=== PATIENT | female | born 1955 | race Caucasian/White ===

== ENCOUNTER → 2018-04-16 12:00 | Outpatient (CLI) | payer OTHER, SELFPAY | PROVIDERS: Family Provider Family Medicine; PCP Family Medicine; Visit Provider Family Medicine | DX: Z13.9 Encounter for screening, unspecified (principal) ==

== ENCOUNTER → 2018-04-18 09:10 | Outpatient (CLI) | payer OTHER, SELFPAY ==
[2018-04-18 09:46] LABS: Add Manual Diff / Slide Review NO; Hematocrit 41.8 % (36-46); Hemoglobin 13.9 g/dL (12.0-16.0); Lymphocytes Percent Auto 35.5 % (25-40); Mean Corpuscular HGB Conc 33.2 % (30-36); Mean Corpuscular Hemoglobin 29.6 PG (26-34); Mean Corpuscular Volume 89.2 fL (80-100); Monocytes Percent Auto 7.7 % (3-14); Neutrophils Absolute Auto 2500 /uL (3000-5900); Neutrophils Percent Auto 47.8 % (50-75); Platelet Count 331 X10^3/uL (150-400); Red Blood Cell Count 4.69 X10^6/uL (4.0-5.2); White Blood Cell Count 5.2 X10^3/uL (4.5-11.0)
[2018-04-18 10:38] LABS: Alanine Aminotransferase 46 IU/L (9-52); Albumin 4.5 g/dL (3.5-5.0); Albumin Globulin Ratio 1.5 (1.0-2.8); Alkaline Phosphatase 71 U/L (38-126); Amylase 61 U/L (30-110); Aspartate Aminotransferase 35 IU/L (14-36); BUN Creatinine Ratio 12.5 (6-22); Bilirubin Total 0.4 mg/dL (0.2-1.3); Blood Urea Nitrogen 10 mg/dL (7-17); Calcium 9.7 mg/dL (8.4-10.2); Carbon Dioxide 29 mmol/L (22-32); Chloride 102 mmol/L (98-107); Cholesterol 241 mg/dL (140-199); Estimated Glomerular Filt Rate > 60.0 mL/min (>60); Globulin 3.1 g/dL (1.7-4.1); Glucose 89 mg/dL (80-110); HDL Cholesterol 61 mg/dL (40-60); HEMOLYSIS < 15 (0-50); LDL Cholesterol Calculated 158 mg/dL (<100); Lipase 89 U/L (23-300); Potassium 4.7 mmol/L (3.4-5.1); Sodium 140 mmol/L (137-145); Total Protein 7.6 g/dL (6.3-8.2); Triglycerides 112 mg/dL (35-150)
[2018-04-18 11:07] LABS: Thyroid Stimulating Hormone 1.42 uIU/mL (0.47-4.68)
[2018-04-23 13:17] LABS: (tTG) Ab, IgA < 1 U/mL
== END ==
PROVIDERS: PCP Family Medicine; Visit Provider Family Medicine
DX: R19.5 Other fecal abnormalities (principal)
CPT/HCPCS: 36415; 80053; 80061; 82150; 83516; 83690; 84443; 85025; 86255

== ENCOUNTER → 2018-05-16 12:12 | Outpatient (CLI) | payer OTHER, SELFPAY | PROVIDERS: PCP Family Medicine; Visit Provider Family Medicine | DX: R19.5 Other fecal abnormalities (principal) | CPT/HCPCS: 87177 ==

== ENCOUNTER 2018-12-24 12:15 | Emergency (ER) | payer OTHER, SELFPAY ==
[2018-12-24 12:39] VITALS: PULSE 72; RESP 18; TEMP 36.6; O2SAT 98
--- NOTE | 2018-12-24 12:46 | DI.RAD.S_ITS ---
PROCEDURE: XR ELBOW RT MIN 3V INDICATIONS: Right elbow injury TECHNIQUE: 3 views of the elbow were acquired. COMPARISON: None. FINDINGS: Bones: There is a nondisplaced fracture involving the radial head. No additional fractures are evident. No suspicious osseous lesions are present. Soft tissues: There is a large elbow joint effusion. No suspicious soft tissue calcifications. IMPRESSION: Nondisplaced radial head fracture. Dictated by: Nando Gamboa M.D. on 12/24/2018 at 12:49 Approved by: Nando Gamboa M.D. on 12/24/2018 at 12:59
--- NOTE | 2018-12-24 14:38 | DI.RAD.S_ITS ---
PROCEDURE: XR FOREARM RT 2V INDICATIONS: fall with pain TECHNIQUE: 2 views of the forearm were acquired. COMPARISON: [facility], CR, XR ELBOW RT MIN 3V, 12/24/2018, 12:57. FINDINGS: Bones: Radial head fracture is identified. No significant displacement is evident. No additional fractures are present involving the forearm. No suspicious osseous lesions or dislocations are evident. Soft tissues: No suspicious soft tissue calcifications or masses. There is an elbow effusion. IMPRESSION: Essentially nondisplaced radial head fracture. No additional fractures. Dictated by: Nando Gamboa M.D. on 12/24/2018 at 14:22 Approved by: Nando Gamboa M.D. on 12/24/2018 at 14:23
--- NOTE | 2018-12-24 15:03 | ED.UPPEXIN ---
HPI - Extremity Injury (Upper) <TARIK MccrayBC - Last Filed: 12/24/18 16:54> General Chief Complaint: Extremity Injury, Upper Stated Complaint: FALL/RT ARM PAIN Time Seen by Provider: 12/24/18 14:36 Source: patient Mode of arrival: ambulatory Limitations: no limitations History of Present Illness HPI narrative: Patient is a 63-year-old female nonsmoker with history of TBI who presents for a chief complaint of right arm pain. She states that she was working with horses yesterday and fell, landing on her right arm. She states she cannot flex or extend her right elbow fully. She denies any neck or back pain. She denies hitting her head or loss of consciousness. She does not take any blood thinners. She states that her elbow hurts, nonradiating. She took 1 200 mg ibuprofen this morning. She states she is unable to pronate or supinate her forearm. She has not applied ice. She states that she does not think it is broken as she broke her other arm and does not feel that. Related Data Home Medications Medication Instructions Recorded Confirmed CA PANTOTHENATE/FOLIC ACID/VIT 1 tab PO Q DAY #0 03/24/11 12/24/18 (MULTIVITAMIN) Calcium Carbonate/Vitamin D 1 cap PO Q DAY #0 03/24/11 12/24/18 (#CALCIUM) ibuprofen 200 mg tablet 200 mg PO QID PRN 12/24/18 12/24/18 Previous Rx's Medication Instructions Recorded hydrocodone-acetaminophen [[place]] 1 tab PO Q4-6H PRN #7 tab 12/24/18 Allergies Allergy/AdvReac Type Severity Reaction Status Date / Time Penicillins [PENICILLINS] Allergy Severe RASH AND Verified 04/16/18 11:29 THROAT SWELLING lactose Allergy Intermediate Gi upset Verified 12/24/18 11:45 ceftizoxime [CEFTIZOXIME] AdvReac Intermediate GI UPSET Verified 04/16/18 11:29 AND ACHY JOINTS ciprofloxacin [From CIPRO] AdvReac Mild ACHY JOINTS Verified 04/16/18 11:29 Review of Systems <RADHA Mccray - Last Filed: 12/24/18 16:54> Review of Systems GENERAL: Denies chills, fatigue, malaise, fever, sweats. HEENT: Denies sinus pain, ear pain, sore throat, difficulty swallowing, dizziness. RESPIRATORY: Denies dyspnea, cough, wheezing, hemoptysis, sputum. CARDIOVASCULAR: Denies chest pain, palpitations, orthopnea, edema, GASTROINTESTINAL: Denies nausea, vomiting, abdominal pain, diarrhea, constipation, melena. : Denies dysuria, frequency, incontinence, hematuria, urinary retention. MUSCULOSKELETAL: See HPI SKIN: Denies rash, skin lesions, or other NEUROLOGIC: Denies weakness, headache, numbness, change in speech, confusion, seizures, incoordination. PSYCHIATRIC: No concerning psychosocial issues. 12 point review of systems is negative except for those stated above PFSH <RADHA Mccray - Last Filed: 12/24/18 16:54> Medical History Concussion syndrome (Chronic ~2015) Foot pain (Chronic) Hearing loss (Chronic) Hyperlipidemia (Chronic) Rosacea (Chronic) Seasonal allergies (Chronic) TBI (traumatic brain injury) (Chronic ~2015) Surgical History Anesthesia (Resolved) History of elbow surgery (Resolved ~1964) Social History marital status: Smoking Status: Never smoker alcohol intake: never substance use type: does not use Social History marital status: Smoking Status: Never smoker alcohol intake: never substance use type: does not use Exam <RADHA Mccray - Last Filed: 12/24/18 16:54> Narrative Exam Narrative: GENERAL: This is a well-nourished, well-developed patient, no acute distress HEAD: Atraumatic. Normocephalic. No temporal or scalp tenderness. EYES: Pupils equal round and reactive. Extraocular motions intact. No scleral icterus. No injection or drainage. ENT: Nose without bleeding, purulent drainage or septal hematoma. Throat without erythema, tonsillar hypertrophy or exudate. Uvula midline. Airway patent. NECK: Trachea midline. No JVD or lymphadenopathy. Supple, nontender, no meningeal signs. CARDIOVASCULAR: Regular rate and rhythm without murmurs, gallops, or rubs. RESPIRATORY: Clear to auscultation. Breath sounds equal bilaterally. No wheezes, rales, or rhonchi. No cough. No increased respiratory effort GASTROINTESTINAL: Abdomen soft, non-tender, nondistended. No hepato-splenomegaly, or palpable masses. No guarding. EXTREMITIES: Pain to palpation noted right elbow, and able to fully flex right elbow only able to flex to about 90?. Positive radial pulse right hand. Capillary refill less than 2 seconds all fingers right hand. No pain to palpation right shoulder. Able to flex and extend right wrist. BACK: Nontender without deformity or crepitance. No flank tenderness. Skin: No erythema ecchymosis laceration or abrasion noted right arm. Neuro: Alert and oriented x3. Good polyethylene combiner strength bilaterally. No slurred speech. No obvious cranial nerve deficit. Initial Vital Signs Initial Vital Signs: Vital Signs Temperature 97.9 F 12/24/18 12:39 Pulse Rate 72 12/24/18 12:39 Respiratory Rate 18 12/24/18 12:39 Pulse Oximetry 98 12/24/18 12:39 <Tara Plata MD - Last Filed: 12/24/18 19:54> Initial Vital Signs Initial Vital Signs: Vital Signs Temperature 97.9 F 12/24/18 12:39 Pulse Rate 72 12/24/18 12:39 Respiratory Rate 18 12/24/18 12:39 Pulse Oximetry 98 12/24/18 12:39 Procedures <RADHA Mccray - Last Filed: 12/24/18 16:54> Orthopedic Splinting/Casting Injury #1: Side: right Upper Extremity Injury Location: elbow Upper Extremity Immobilizer: sling/shoulder immobilizer, posterior splint and Demario wrap Post splinting neuro exam: intact Post splinting vascular exam: intact Placed by: Nursing Scores <RADHA Mccray - Last Filed: 12/24/18 16:54> GCS Sandrine coma scale eye opening: Spontaneous Sandrine coma scale verbal response: Orientated Sandrine coma scale motor response: Obey commands [place] coma scale total score: 15 Course <RADHA Mccray - Last Filed: 12/24/18 16:54> Orders Ordered: ED Orders 12/24/18 12:46 XR elbow RT min 3V Stat 12/24/18 14:38 XR forearm RT 2V Stat Discontinued Medications Ibuprofen (Advil) 800 mg PO NOW ONE Stop: 12/24/18 15:37 Last Admin: 12/24/18 15:44 Dose: 400 mg Vital Signs - 8 hr 12/24/18 12:39 12/24/18 16:46 Temperature 97.9 F 97.7 F Pulse Rate 72 81 Respiratory Rate 18 16 Blood Pressure 149/66 H Pulse Oximetry 98 99 <Tara Plata MD - Last Filed: 12/24/18 19:54> Orders Ordered: ED Orders 12/24/18 12:46 XR elbow RT min 3V Stat 12/24/18 14:38 XR forearm RT 2V Stat Discontinued Medications Ibuprofen (Advil) 800 mg PO NOW ONE Stop: 12/24/18 15:37 Last Admin: 12/24/18 15:44 Dose: 400 mg Vital Signs - 8 hr 12/24/18 12:39 12/24/18 16:46 Temperature 97.9 F 97.7 F Pulse Rate 72 81 Respiratory Rate 18 16 Blood Pressure 149/66 H Pulse Oximetry 98 99 MDM - Extremity Injury (Upper) <RADHA Mccray - Last Filed: 12/24/18 16:54> Imaging Data Forearm x-ray: Radiologist's impression: [address] [address] XRay Report Signed Patient: Leeanne Reyes [facility]#: [id number] : 8Acct:[id number] Age/Sex: 63 / FDate of Service: 12/24/18 Loc: ED Accession Number: [id number] Procedure: XR forearm RT 2V Ordering Provider: Alma Caballero PROCEDURE: XR FOREARM RT 2V INDICATIONS: fall with pain TECHNIQUE: 2 views of the forearm were acquired. COMPARISON: [facility], CR, XR ELBOW RT MIN 3V, 12/24/2018, 12:57. FINDINGS: Bones: Radial head fracture is identified. No significant displacement is evident. No additional fractures are present involving the forearm. No suspicious osseous lesions or dislocations are evident. Soft tissues: No suspicious soft tissue calcifications or masses. There is an elbow effusion. IMPRESSION: Essentially nondisplaced radial head fracture. No additional fractures. Dictated by: Nando Gamboa M.D. on 12/24/2018 at 14:22 Approved by: Nando Gamboa M.D. on 12/24/2018 at 14:23 Elbow x-ray: Radiologist's impression: [address] [address] XRay Report Signed Patient: Leeanne Reyes [facility]#: [id number] : 8Acct:[id number] Age/Sex: 63 / FDate of Service: 12/24/18 Loc: ED Accession Number: [id number] Procedure: XR elbow RT min 3V Ordering Provider: Tara Plata MD PROCEDURE: XR ELBOW RT MIN 3V INDICATIONS: Right elbow injury TECHNIQUE: 3 views of the elbow were acquired. COMPARISON: None. FINDINGS: Bones: There is a nondisplaced fracture involving the radial head. No additional fractures are evident. No suspicious osseous lesions are present. Soft tissues: There is a large elbow joint effusion. No suspicious soft tissue calcifications. IMPRESSION: Nondisplaced radial head fracture. Dictated by: Nando Gamboa M.D. on 12/24/2018 at 12:49 Approved by: Nando Gamboa M.D. on 12/24/2018 at 12:59 MDM Narrative Medical decision making narrative: The patient is a 63-year-old female who presents after ground level fall with right arm pain. She initially declined her right forearm x-ray, which ended up delaying her treatment. She was found have a radial head fracture. She has a large elbow effusion and is unable to flex her right elbow fully, but she was placed in a posterior splint, full arm with the elbow at 90?.. I gave her small prescription of [place]. She is neurovascularly intact. I discussed at length follow up with her PCP as well as [facility]. She was given contact information for both. I discussed at length coming back to the ER for any acute concerns such as decreased circulation to the fingers. No questions or concerns upon discharge. Also encouraged rest ice compression elevation. Patient states understanding of return precautions as well as follow-up care. Discharge Plan Departure Patient Disposition: Home Clinical Impression: Closed fracture of radial head Qualifiers: Encounter type: initial encounter Fracture alignment: nondisplaced Laterality: right Qualified Code(s): S52.124A - Nondisplaced fracture of head of right radius, initial encounter for closed fracture Discharge Date/Time: 12/24/18 16:45 Interventions: ED Discharge Assessment Last Done: 12/24/18 16:46 Instructions: How to Use a Sling, DI for Forearm Fracture, How to Take Care of Your Splint Activity Restrictions/Additional Instructions: Unfortunately broke part of the radius today. Please follow up with your PCP as well as [facility]. I have given you contact information for both. Please be aware of that [place] can be constipating And sedating. Please come back to the emergency department for any acute concerns such as decreased movement or circulation toher fingers Prescriptions: New hydrocodone-acetaminophen [[place]] 5-325 mg tablet 1 tab PO Q4-6H PRN (Reason: pain) Qty: 7 RF: 0 No Action CA PANTOTHENATE/FOLIC ACID/VIT (MULTIVITAMIN) 1 tab PO Q DAY Qty: 0 RF: 0 Calcium Carbonate/Vitamin D (#CALCIUM) 1 cap PO Q DAY Qty: 0 RF: 0 ibuprofen [Advil] 200 mg tablet 200 mg PO QID PRNRF: 0 Referrals: [facility] [Provider Group] Dawson Pollock MD [Primary Care Provider] -
[2018-12-24] MEDS: IBUPROFEN 400 MG TABLET 800 MG PO (15:44)
[2018-12-24 16:46] VITALS: BP 149/66; PULSE 81; RESP 16; TEMP 36.5; O2SAT 99
== END 2018-12-24 16:45 | disposition home or self-care (01) ==
PROVIDERS: Emergency Provider Nurse Practitioner Family; PCP Family Medicine
DX: S52.124A Nondisplaced fracture of head of right radius, initial encounter for closed fracture (principal); W19.XXXA Unspecified fall, initial encounter
CPT/HCPCS: 73080; 73090; 99282; 99283

== ENCOUNTER 2019-06-18 12:00 | Outpatient (RCR) | payer OTHER, SELFPAY ==
--- NOTE | 2019-02-10 11:58 | PT.OIE ---
Current Diagnoses Pain in right elbow (02/06/19) Nondisplaced fracture of head of right radius, initial encounter for closed fracture (02/06/19) Past Medical History (Last Reviewed 12/24/18 @ 16:49 by RADHA Mccray) Concussion syndrome (Chronic ~2015) Foot pain (Chronic) Hearing loss (Chronic) Hyperlipidemia (Chronic) Rosacea (Chronic) Seasonal allergies (Chronic) TBI (traumatic brain injury) (Chronic ~2015) Past Surgical History (Last Reviewed 12/24/18 @ 16:49 by RADHA Mccray) Anesthesia (Resolved) History of elbow surgery (Resolved ~1964) Visit Care Team Role Provider Type Dawson Pollock MD Primary Care Provider Physician Specialty: Family Practice Address: [address] [place] [address], [id number] Email: [email or web address] Other Providers Specialty: Address: Phone: Fax: Email: Arsen Pacheco MD Attending Provider Non-Staff Specialty: Orthopedic Surgery Address: [address] [place] [address], [address], [place], [address] Email: Physical Therapy Initial Evaluation PT-OP-A Visit Information Start: 02/10/19 09:22 Freq: Status: Active Protocol: Document 02/06/19 11:25 [facility] (Rec: 02/10/19 09:51 [facility] [email or web address]) Out-Patient Physical Therapy Visit Information Visit Information Visit Type Initial Evaluation Visit Note 63 year old female s/p nondisplaced fracture of the right radial head. Date of injury is 12/23/18 and Leeanne sustained a fall which resulted in the fracture. She has been in a sling since this time and is very limited with her ROM and functional use of the right UE Visit Start Time 11:25 Visit Stop Time 12:10 Total Visit Minutes 45 Visit Number 1 Evaluation Information Evaluation Date 02/06/19 PT-OP-B Current Condition Start: 02/10/19 09:22 Freq: Status: Active Protocol: Document 02/06/19 11:25 [facility] (Rec: 02/10/19 09:51 [facility] [email or web address]) Current Condition History of Current Condition Onset Date 12/23/18 Current Complaints right sided elbow stiffness and lack of ROM or functional use History of Current Condition Leeanne is a 63 year old female who fell on 12/23/18. X-ray report taken on 12/24/18 revealed a nondisplaced fracture of the right radial head. There was also a large amount of elbow effusion present. Leeanne was placed in a sling and she wore this until she saw Dr. Pacheco on 02/03 who had her discontinue use of the sling and only wear it when she is in crowds. She was prescribed PT at this time. Her current complaints include severly limited elbow ROM, swelling, difficulty moving her fingers, inablity to hold items in her right hand, pain with any twisting and unable to perform. Treatment Goals Patient/Caregiver Goals Leeanne would like a full recovery of her elbow with full ROM and strength Prior Functional Status Baseline Function- ADL's Modified Independent Baseline Function- Mobility Modified Independent Current Functional Impairments (Reported) Functional Limitations- ADL's limited with anything that requires use of her right hand or arm Functional Limitations- Recreation/ unable to lift hay vikas and Hobbies has to modify for activities such as sweeping the barn, hasn't been able to go on hikes due to pain and limited elbow mobility PT-OP-C Subjective Start: 02/10/19 09:22 Freq: Status: Active Protocol: Document 02/06/19 11:25 [facility] (Rec: 02/10/19 11:58 [facility] [email or web address]) Patient Questionnaires Quick Dash- Upper Extremity Quick Dash UE Impairment 40 to 59% Impaired (Score 40- 59) OP-PT Pain Assessment Location Right Elbow Pain Location Details pain right elbow, wrist, shoulder Intensity 5 Scale Used Numeric (1 - 10) PT-OP-F Manual Assessment Start: 02/10/19 09:22 Freq: Status: Active Protocol: Document 02/06/19 11:25 [facility] (Rec: 02/10/19 09:51 [facility] [email or web address]) Manual Assessments Soft Tissue Assessment Soft Tissue Mobility Assessment guarding and spasm of the right biceps, deltiod, upper trapezius, common extensor tendon, supinator muscle Joint Mobility Assessment Joint Mobility Assessment very limited R elbow and wrist ROM, guarded right shoulder ROM, Other Manual Assessments Other Manual Assessments swelling noted over the right wrist and fingers PT-OP-J Posture/Palpation/Skin Start: 02/10/19 09:22 Freq: Status: Active Protocol: Document 02/06/19 11:25 [facility] (Rec: 02/10/19 09:51 [facility] [email or web address]) Palpation Assessment Location Three Palpation Location right supinator muscle Palpation Findings Soft Tissue Tightness,Spasm, Muscle Guarding,Tenderness Two Palpation Location common extensor tendon R Palpation Findings Soft Tissue Tightness,Spasm, Muscle Guarding,Tenderness One Palpation Location right radial head Palpation Findings Tenderness PT-OP-M Strength Start: 02/10/19 09:22 Freq: Status: Active Protocol: Document 02/06/19 11:25 [facility] (Rec: 02/10/19 09:51 [facility] [email or web address]) Shoulder Strength Shoulder Manual Muscle Testing Right Flexion 2+ Poor+ Abduction (C5) 2+ Poor+ External Rotation 2+ Poor+ Elbow/Forearm Strength Elbow and Forearm Manual Muscle Testing Right Flexion (C6) 2 Poor Extension (C7) 2 Poor Pronation 2 Poor Supination 2 Poor Wrist Strength Wrist Manual Muscle Testing Right Flexion (C7) 2- Poor- Extension (C6) 2- Poor- Ulnar Deviation 2- Poor- Radial Deviation 2- Poor- PT-OP-Q Treatments Start: 02/10/19 09:22 Freq: Status: Active Protocol: Document 02/06/19 11:25 [facility] (Rec: 02/10/19 09:51 [facility] [email or web address]) Therapeutic Exercises Sitting Exercises 1 Sitting Exercise Name seated wrist flexion, ext, supination, pronation Side right Reps/Minutes 2 x 10 reps Standing Exercises 2 Standing Exercise Name standing bicep curls and tricep extension Side right 1 Standing Exercise Name shoulder pendullum Side right Reps/Minutes 2 min Manual Therapy Treatment Soft Tissue Mobilization 1 Body Location right biceps, deltoid, wrist extensors Mobilization Type Myofascial Release,Strumming Intensity/Depth Superficial Body Position Supine PT-OP-T Assessment and Plan Start: 02/10/19 09:22 Freq: Status: Active Protocol: Document 02/06/19 11:25 [facility] (Rec: 02/10/19 09:51 [facility] [email or web address]) Physical Therapy Assessment Rehab Potential Rehabilitation Potential Good Evaluation Complexity Number of Personal Factors/Comorbidities 0 Number of Body Systems Impaired 1-2 Clinical Presentation at Evaluation Stable Impairments Impairments Activity Tolerance,Edema, Functional Activities,Pain,ROM ,Soft Tissue Mobility,Strength Goals Five Impairment Poor strength of the R elbow, wrist, and shoulder due to pain/immobility Assistant Program Manager Goal (LTG) Improve strength of the right UE to WFL LTG Duration 8 weeks Four Impairment R sided elbow pain rated 5/10 and decreased functional use of the R elbow Residential Goal (LTG) Leeanne has a reduction in pain to 1-2/10 and is able to return to normal functional activities such a twisting and gripping. LTG Duration 8 weeks + Three Impairment Painful and stiff right shoulder Residential Goal (LTG) Decrease muscle guarding and pain and improve full pain free R shoulder ROM LTG Duration 8 weeks Two Impairment Painful and limited ROM of the R wrist Short Term Goal (STG) Improve wrist ROM from 20 degrees extension and 50 degrees flexion to WNL of 70 degress wrist extension and 75 degrees wrist flexion STG Duration 4-6 weeks One Impairment decreased R elbow ROM Flexion 95, ext 38, pronation 30, supination 15 Short Term Goal (STG) Leeanne shows a increase in elbow ROM by 10 degrees for elbow flexion, extension, pronation and supination STG Duration 4-6 weeks Residential Goal (LTG) Leeanne is able to gain full ROM back of her right elbow LTG Duration 8 weeks + Assessment Summary Assessment Leeanne presents to PT today with signs and symptoms of right elbow, wrist, and shoulder stiffness folllowing the fracture to her right radial head 12/23/18. She has very limited ROM and has been wearing a sling up until 02/03 when she saw her orthopedic doctor. 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 Her right shoulder is also involved with guarding and spasm of the biceps and deltoid as well as the upper trapezius. She has very little functional use of her R UE at this time and is walking with it bent as if it was in a sling. Treatment will focus on improving pain free ROM of the right elbow, wrist, and shoulder, decreasing swelling, improving strength, and decreasing pain . Physical Therapy Plan Frequency and Duration Frequency of Treatment 2x/Week Duration of Treatment 8 Plan of Care Start Date 02/06/19 Plan of Care End Date 03/20/19 Therapeutic Interventions Therapeutic Interventions Manual Therapy,Patient/ Caregiver Education,Self-Care/ Home Management,Soft Tissue Mobilization,Therapeutic Exercises Modalities Cold Pack/Ice Massage,Electric Stimulation Next Visit Focus/Plan Next Note Type Treatment Note Next Visit Plan review wrist and elbow ROM exercises, manual work to decrease muscle guarding and pain, progress ROM exercises as tolerated. Try gentle weightshifts in modified standing position.
--- NOTE | 2019-02-10 12:00 | PT.OPPOC ---
Current Diagnoses Pain in right elbow (02/06/19) Nondisplaced fracture of head of right radius, initial encounter for closed fracture (02/06/19) Visit Care Team Role Provider Type Dawson Pollock MD Primary Care Provider Physician Specialty: Family Practice Address: [address] [place] [address], [id number] Email: [email or web address] Other Providers Specialty: Address: Phone: Fax: Email: Arsen Pacheco MD Attending Provider Non-Staff Specialty: Orthopedic Surgery Address: [address] [place] [address], [address], [place], [address] Email: Plan Of Care PT-OP-T Assessment and Plan Start: 02/10/19 09:22 Freq: Status: Active Protocol: Document 02/06/19 11:25 [facility] (Rec: 02/10/19 09:51 [facility] [email or web address]) Physical Therapy Assessment Rehab Potential Rehabilitation Potential Good Evaluation Complexity Number of Personal Factors/Comorbidities 0 Number of Body Systems Impaired 1-2 Clinical Presentation at Evaluation Stable Impairments Impairments Activity Tolerance,Edema, Functional Activities,Pain,ROM ,Soft Tissue Mobility,Strength Goals Five Impairment Poor strength of the R elbow, wrist, and shoulder due to pain/immobility Pharmacy Laboratory Technician Goal (LTG) Improve strength of the right UE to WFL LTG Duration 8 weeks Four Impairment R sided elbow pain rated 5/10 and decreased functional use of the R elbow Pharmacy Laboratory Technician Goal (LTG) Leeanne has a reduction in pain to 1-2/10 and is able to return to normal functional activities such a twisting and gripping. LTG Duration 8 weeks + Three Impairment Painful and stiff right shoulder Halfway Goal (LTG) Decrease muscle guarding and pain and improve full pain free R shoulder ROM LTG Duration 8 weeks Two Impairment Painful and limited ROM of the R wrist Short Term Goal (STG) Improve wrist ROM from 20 degrees extension and 50 degrees flexion to WNL of 70 degrees wrist extension and 75 degrees wrist flexion STG Duration 4-6 weeks One Impairment decreased R elbow ROM Flexion 95, ext 38, pronation 30, supination 15 Short Term Goal (STG) Leeanne shows a increase in elbow ROM by 10 degrees for elbow flexion, extension, pronation and supination STG Duration 4-6 weeks Pharmacy Laboratory Technician Goal (LTG) Leeanne is able to gain full ROM back of her right elbow LTG Duration 8 weeks + Assessment Summary Assessment Leeanne presents to PT today with signs and symptoms of right elbow, wrist, and shoulder stiffness following the fracture to her right radial head 12/23/18. She has very limited ROM and has been wearing a sling up until 02/03 when she saw her orthopedic doctor. Her elbow ROM is limited to 95 deg flexion with 38 degrees ext, wrist extension and supination also very limited and she has very poor ability to perform any arts manager strength. Her right shoulder is also involved with guarding and spasm of the biceps and deltiod as well as the upper trapezius. She has very little functional use of her R UE at this time and is walking with it bent as if it was in a sling. Treatment will focus on improving pain free ROM of the right elbow, wrist, and shoulder, decreasing swelling, improving strength, and decreasing pain . Physical Therapy Plan Frequency and Duration Frequency of Treatment 2x/Week Duration of Treatment 8 Plan of Care Start Date 02/06/19 Plan of Care End Date 03/20/19 Therapeutic Interventions Therapeutic Interventions Manual Therapy,Patient/ Caregiver Education,Self-Care/ Home Management,Soft Tissue Mobilization,Therapeutic Exercises Modalities Cold Pack/Ice Massage,Electric Stimulation Next Visit Focus/Plan Next Note Type Treatment Note Next Visit Plan review wrist and elbow ROM exercises, manual work to decrease muscle guarding and pain, progress ROM exercises as tolerated. Try gentle weight shifts in modified standing position. Plan of Care Dates Plan of Care Start Date 02/06/19 Plan of Care End Date 03/20/19
--- NOTE | 2019-02-11 18:20 | PT.OTN ---
Current Diagnoses Pain in right elbow (02/11/19) Nondisplaced fracture of head of right radius, initial encounter for closed fracture (02/11/19) Physical Therapy Treatment Note PT-OP-A Visit Information Start: 02/10/19 09:22 Freq: Status: Active Protocol: Document 02/11/19 13:00 [facility] (Rec: 02/11/19 18:17 [facility] [id number]) Out-Patient Physical Therapy Visit Information Visit Information Visit Type Treatment Note Visit Start Time 13:00 Visit Stop Time 13:50 Total Visit Minutes 50 Visit Number 2 Number of CONCRETING SUPERVISOR Visits 0 PT-OP-B Current Condition Start: 02/10/19 09:22 Freq: Status: Active Protocol: Document 02/06/19 11:25 [facility] (Rec: 02/10/19 09:51 [facility] [email or web address]) Current Condition History of Current Condition Onset Date 12/23/18 Current Complaints right sided elbow stiffness and lack of ROM or functional use History of Current Condition Leeanne is a 63 year old female who fell on 12/23/18. X-ray report taken on 12/24/18 revealed a nondisplaced fracture of the right radial head. There was also a large amount of elbow effusion present. Leeanne was placed in a sling and she wore this until she saw Dr. Pacheco on 02/03 who had her discontinue use of the sling and only wear it when she is in crowds. She was presribed PT at this time. Her current complaints include severly limited elbow ROM, swelling, difficulty moving her fingers, inablilty to hold items in her right hand, pain with any twisting and unable to perform. Treatment Goals Patient/Caregiver Goals Leeanne would like a full recovery of her elbow with full ROM and strength Prior Functional Status Baseline Function- ADL's Modified Independent Baseline Function- Mobility Modified Independent Current Functional Impairments (Reported) Functional Limitations- ADL's limited with anything that requires use of her right hand or arm Functional Limitations- Recreation/ unable to lift hay vikas and Hobbies has to modify for activities such as sweeping the barn, hasn't been able to go on hikes due to pain and limited elbow mobility PT-OP-C Subjective Start: 02/10/19 09:22 Freq: Status: Active Protocol: Document 02/11/19 13:00 [facility] (Rec: 02/11/19 18:17 [facility] [id number]) OP-PT Subjective Patient Comments Patient Comments Leeanne reports she slept better after last visit as it was more comfortable finding a position for her right arm. She has been working on her exercises PT-OP-F Manual Assessment Start: 02/10/19 09:22 Freq: Status: Active Protocol: Document 02/06/19 11:25 [facility] (Rec: 02/10/19 09:51 [facility] [id number]) Manual Assessments Soft Tissue Assessment Soft Tissue Mobility Assessment guarding and spasm of the right biceps, deltiod, upper trapezius, common extensor tendon, supinator muscle Joint Mobility Assessment Joint Mobility Assessment very limited R elbow and wrist ROM, guarded right shoulder ROM, Other Manual Assessments Other Manual Assessments swelling noted over the right wrist and fingers PT-OP-J Posture/Palpation/Skin Start: 02/10/19 09:22 Freq: Status: Active Protocol: Document 02/06/19 11:25 [facility] (Rec: 02/10/19 09:51 [facility] [id number]) Palpation Assessment Location Three Palpation Location right supinator muscle Palpation Findings Soft Tissue Tightness,Spasm, Muscle Guarding,Tenderness Two Palpation Location common extensor tendon R Palpation Findings Soft Tissue Tightness,Spasm, Muscle Guarding,Tenderness One Palpation Location right radial head Palpation Findings Tenderness PT-OP-K Range of Motion Start: 02/10/19 09:51 Freq: Status: Active Protocol: Document 02/06/19 11:15 [facility] (Rec: 02/11/19 18:19 [facility] [id number]) Shoulder Goniometric Range of Motion Shoulder Right Active Testing Position Supine Flexion 150 External Rotation at 90 degrees 35 Abduction Elbow/Forearm Range of Motion Elbow/Forearm Right Passive ROM Testing Position Supine Elbow Flexion (degrees) 95 Elbow Extension (degrees) 38 Pronation (degrees) 30 Supination (degrees) 15 Wrist Goniometric Range of Motion Wrist Right Flexion Active (degrees) 50 Extension Active (degrees) 20 PT-OP-M Strength Start: 02/10/19 09:22 Freq: Status: Active Protocol: Document 02/06/19 11:25 [facility] (Rec: 02/10/19 09:51 [facility] [id number]) Shoulder Strength Shoulder Manual Muscle Testing Right Flexion 2+ Poor+ Abduction (C5) 2+ Poor+ External Rotation 2+ Poor+ Elbow/Forearm Strength Elbow and Forearm Manual Muscle Testing Right Flexion (C6) 2 Poor Extension (C7) 2 Poor Pronation 2 Poor Supination 2 Poor Wrist Strength Wrist Manual Muscle Testing Right Flexion (C7) 2- Poor- Extension (C6) 2- Poor- Ulnar Deviation 2- Poor- Radial Deviation 2- Poor- PT-OP-Q Treatments Start: 02/10/19 09:22 Freq: Status: Active Protocol: Document 02/11/19 13:00 [facility] (Rec: 02/11/19 18:17 [facility] [id number]) Therapeutic Exercises Supine Exercises 2 Supine Exercise Name supine shoulder flexion AAROM with wand Reps/Minutes x 10 reps 1 Supine Exercise Name elbow flexion with supination and elbow extension with pronation Sitting Exercises 1 Sitting Exercise Name seated wrist flexion, ext, supination, pronation Side right Reps/Minutes 2 x 10 reps Standing Exercises 4 Standing Exercise Name standing wrist mobilitzations and compressions Reps/Minutes 3 min Comments right on elevated plinth with squats, side sways, calf raises 3 Standing Exercise Name standing small ball rolls with the right hand on the ball Reps/Minutes 2 min Comments on elevated plinth table 2 Standing Exercise Name standing bicep curls and tricep extension Side right 1 Standing Exercise Name shoulder pendullum Side right Reps/Minutes 2 min Manual Therapy Treatment Soft Tissue Mobilization 1 Body Location right biceps, deltoid, wrist extensors Mobilization Type Myofascial Release,Strumming Intensity/Depth Superficial Body Position Supine Manual Techniques 1 Type manual elbow ROM into flexion ext, wrist pronation/ supination PT-OP-R Modalities Start: 02/10/19 09:22 Freq: Status: Active Protocol: Document 02/11/19 13:00 [facility] (Rec: 02/11/19 18:17 [facility] [id number]) Hot Pack/Cold Pack Treatment Hot Pack Location right elbow with extension stretch Patient Position Supine Treatment Duration (minutes) 10 Patient Tolerance Good PT-OP-T Assessment and Plan Start: 02/10/19 09:22 Freq: Status: Active Protocol: Document 02/11/19 13:00 [facility] (Rec: 02/11/19 18:17 [facility] [id number]) Physical Therapy Assessment Assessment Summary Assessment improved elbow ROM today 105 degrees flexion, 35 degrees extension, sleeping better now . Able to tolerate some manual ROM but very painful with flexion overpressure and supination. Began standing weight shifting with hand on a elevated plinth with good tolerance. Physical Therapy Plan Frequency and Duration Frequency of Treatment 2x/Week Duration of Treatment 8 Plan of Care Start Date 02/06/19 Plan of Care End Date 03/20/19 Therapeutic Interventions Therapeutic Interventions Manual Therapy,Patient/ Caregiver Education,Self-Care/ Home Management,Soft Tissue Mobilization,Therapeutic Exercises Next Visit Focus/Plan Next Visit Plan continue progressing elbow, wrist, and shoulder ROM, walking with decreased guarding of the right arm, manual therapy treatments for improved ROM
--- NOTE | 2019-02-13 14:25 | PT.OTN ---
Current Diagnoses Pain in right elbow (02/13/19) Nondisplaced fracture of head of right radius, initial encounter for closed fracture (02/13/19) Physical Therapy Treatment Note PT-OP-A Visit Information Start: 02/10/19 09:22 Freq: Status: Active Protocol: Document 02/13/19 14:20 [facility] (Rec: 02/13/19 14:25 [facility] [id number]) Out-Patient Physical Therapy Visit Information Visit Information Visit Type Treatment Note Visit Start Time 08:17 Visit Stop Time 09:09 Total Visit Minutes 52 Visit Number 2 Number of VP OF GLOBAL MARKETING Visits 0 PT-OP-B Current Condition Start: 02/10/19 09:22 Freq: Status: Active Protocol: Document 02/06/19 11:25 [facility] (Rec: 02/10/19 09:51 [facility] [email or web address]) Current Condition History of Current Condition Onset Date 12/23/18 Current Complaints right sided elbow stiffness and lack of ROM or functional use History of Current Condition Leeanne is a 63 year old female who fell on 12/23/18. X-ray report taken on 12/24/18 revealed a nondisplaced fracture of the right radial head. There was also a large amount of elbow effusion present. Leeanne was placed in a sling and she wore this until she saw Dr. Pacheco on 02/03 who had her discontinue use of the sling and only wear it when she is in crowds. She was presribed PT at this time. Her current complaints include severly limited elbow ROM, swelling, difficulty moving her fingers, inablilty to hold items in her right hand, pain with any twisting and unable to perform. Treatment Goals Patient/Caregiver Goals Leeanne would like a full recovery of her elbow with full ROM and strength Prior Functional Status Baseline Function- ADL's Modified Independent Baseline Function- Mobility Modified Independent Current Functional Impairments (Reported) Functional Limitations- ADL's limited with anything that requires use of her right hand or arm Functional Limitations- Recreation/ unable to lift hay vikas and Hobbies has to modify for activities such as sweeping the barn, hasn't been able to go on hikes due to pain and limited elbow mobility PT-OP-C Subjective Start: 02/10/19 09:22 Freq: Status: Active Protocol: Document 02/13/19 14:20 [facility] (Rec: 02/13/19 14:25 [facility] [id number]) OP-PT Subjective Patient Comments Patient Comments Pt reports compliance with HEP PT-OP-F Manual Assessment Start: 02/10/19 09:22 Freq: Status: Active Protocol: Document 02/06/19 11:25 [facility] (Rec: 02/10/19 09:51 [facility] [email or web address]) Manual Assessments Soft Tissue Assessment Soft Tissue Mobility Assessment guarding and spasm of the right biceps, deltiod, upper trapezius, common extensor tendon, supinator muscle Joint Mobility Assessment Joint Mobility Assessment very limited R elbow and wrist ROM, guarded right shoulder ROM, Other Manual Assessments Other Manual Assessments swelling noted over the right wrist and fingers PT-OP-J Posture/Palpation/Skin Start: 02/10/19 09:22 Freq: Status: Active Protocol: Document 02/06/19 11:25 [facility] (Rec: 02/10/19 09:51 [facility] [email or web address]) Palpation Assessment Location Three Palpation Location right supinator muscle Palpation Findings Soft Tissue Tightness,Spasm, Muscle Guarding,Tenderness Two Palpation Location common extensor tendon R Palpation Findings Soft Tissue Tightness,Spasm, Muscle Guarding,Tenderness One Palpation Location right radial head Palpation Findings Tenderness PT-OP-K Range of Motion Start: 02/10/19 09:51 Freq: Status: Active Protocol: Document 02/06/19 11:15 [facility] (Rec: 02/11/19 18:19 [facility] [id number]) Shoulder Goniometric Range of Motion Shoulder Right Active Testing Position Supine Flexion 150 External Rotation at 90 degrees 35 Abduction Elbow/Forearm Range of Motion Elbow/Forearm Right Passive ROM Testing Position Supine Elbow Flexion (degrees) 95 Elbow Extension (degrees) 38 Pronation (degrees) 30 Supination (degrees) 15 Wrist Goniometric Range of Motion Wrist Right Flexion Active (degrees) 50 Extension Active (degrees) 20 PT-OP-M Strength Start: 02/10/19 09:22 Freq: Status: Active Protocol: Document 02/06/19 11:25 [facility] (Rec: 02/10/19 09:51 [facility] [email or web address]) Shoulder Strength Shoulder Manual Muscle Testing Right Flexion 2+ Poor+ Abduction (C5) 2+ Poor+ External Rotation 2+ Poor+ Elbow/Forearm Strength Elbow and Forearm Manual Muscle Testing Right Flexion (C6) 2 Poor Extension (C7) 2 Poor Pronation 2 Poor Supination 2 Poor Wrist Strength Wrist Manual Muscle Testing Right Flexion (C7) 2- Poor- Extension (C6) 2- Poor- Ulnar Deviation 2- Poor- Radial Deviation 2- Poor- PT-OP-Q Treatments Start: 02/10/19 09:22 Freq: Status: Active Protocol: Document 02/13/19 14:20 [facility] (Rec: 02/13/19 14:25 [facility] [email or web address]) Therapeutic Exercises Sitting Exercises pully Sitting Exercise Name flex & abd Side right Reps/Minutes 15 ea Standing Exercises doorway Standing Exercise Name biceps ( elbow ext stretch Side right Reps/Minutes 45 sec Manual Therapy Treatment Soft Tissue Mobilization 1 Body Location right biceps, brachialis, brachioradialis,wrist flexors Mobilization Type Myofascial Release,Strumming Intensity/Depth Superficial Body Position Supine Joint Mobilizations GH Joint R Direction inf & distraction Grade II PT-OP-R Modalities Start: 02/10/19 09:22 Freq: Status: Active Protocol: Document 02/13/19 14:20 [facility] (Rec: 02/13/19 14:25 [facility] [email or web address]) Hot Pack/Cold Pack Treatment cold Location R elbow Patient Position Hooklying Treatment Duration (minutes) 10 PT-OP-T Assessment and Plan Start: 02/10/19 09:22 Freq: Status: Active Protocol: Document 02/13/19 14:20 [facility] (Rec: 02/13/19 14:25 [facility] [email or web address]) Physical Therapy Assessment Goals Five Impairment Poor strength of the R elbow, wrist, and shoulder due to pain/immobility Project Admin Goal (LTG) Improve strength of the right UE to WFL LTG Duration 8 weeks Four Impairment R sided elbow pain rated 5/10 and decreased functional use of the R elbow Correction Goal (LTG) Leeanne has a reduction in pain to 1-2/10 and is able to return to normal functional activities such a twisting and gripping. LTG Duration 8 weeks + Three Impairment Painful and stiff right shoulder Correction Goal (LTG) Decrease muscle guarding and pain and improve full pain free R shoulder ROM LTG Duration 8 weeks Two Impairment Painful and limited ROM of the R wrist Short Term Goal (STG) Improve wrist ROM from 20 degrees extension and 50 degrees flexion to WNL of 70 degress wrist extension and 75 degrees wrist flexion STG Duration 4-6 weeks One Impairment decreased R elbow ROM Flexion 95, ext 38, pronation 30, supination 15 Short Term Goal (STG) Leeanne shows a increase in elbow ROM by 10 degrees for elbow flexion, extension, pronation and supination STG Duration 4-6 weeks Correction Goal (LTG) Leeanne is able to gain full ROM back of her right elbow LTG Duration 8 weeks + Assessment Summary Assessment Pt improved overall elbow ROM after STM and improved shoulder abd from about 90 deg to 120 PROM and flex from about 130 deg to 150 with mobs . She is very motivated with exercsies and encouraged to keep range within reasonable comfort and not overdo. Physical Therapy Plan Frequency and Duration Frequency of Treatment 2x/Week Duration of Treatment 8 Plan of Care Start Date 02/06/19 Plan of Care End Date 03/20/19 Next Visit Focus/Plan Next Note Type Treatment Note Next Visit Plan continue progressing elbow, wrist, and shoulder ROM, walking with decreased guarding of the right arm, manual therapy treatments for improved ROM
--- NOTE | 2019-02-18 17:56 | PT.OTN ---
Current Diagnoses Pain in right elbow (02/18/19) Nondisplaced fracture of head of right radius, initial encounter for closed fracture (02/18/19) Physical Therapy Treatment Note PT-OP-A Visit Information Start: 02/10/19 09:22 Freq: Status: Active Protocol: Document 02/18/19 17:44 [facility] (Rec: 02/18/19 17:56 [facility] [email or web address]) Out-Patient Physical Therapy Visit Information Visit Information Visit Type Treatment Note Visit Start Time 10:30 Visit Stop Time 11:15 Total Visit Minutes 45 Visit Number 3 Number of [employer] Visits 0 PT-OP-B Current Condition Start: 02/10/19 09:22 Freq: Status: Active Protocol: Document 02/06/19 11:25 [facility] (Rec: 02/10/19 09:51 [facility] [email or web address]) Current Condition History of Current Condition Onset Date 12/23/18 Current Complaints right sided elbow stiffness and lack of ROM or functional use History of Current Condition Leeanne is a 63 year old female who fell on 12/23/18. X-ray report taken on 12/24/18 revealed a nondisplaced fracture of the right radial head. There was also a large amount of elbow effusion present. Leeanne was placed in a sling and she wore this until she saw Dr. Pacheco on 02/03 who had her discontinue use of the sling and only wear it when she is in crowds. She was presribed PT at this time. Her current complaints include severly limited elbow ROM, swelling, difficulty moving her fingers, inablilty to hold items in her right hand, pain with any twisting and unable to perform. Treatment Goals Patient/Caregiver Goals Leeanne would like a full recovery of her elbow with full ROM and strength Prior Functional Status Baseline Function- ADL's Modified Independent Baseline Function- Mobility Modified Independent Current Functional Impairments (Reported) Functional Limitations- ADL's limited with anything that requires use of her right hand or arm Functional Limitations- Recreation/ unable to lift hay vikas and Hobbies has to modify for activities such as sweeping the barn, hasn't been able to go on hikes due to pain and limited elbow mobility PT-OP-C Subjective Start: 02/10/19 09:22 Freq: Status: Active Protocol: Document 02/18/19 17:44 [facility] (Rec: 02/18/19 17:56 [facility] [email or web address]) OP-PT Subjective Patient Comments Patient Comments Leeanne reports she has been able to use her right hand to zip up her jacket. She is trying to use it more and more . PT-OP-F Manual Assessment Start: 02/10/19 09:22 Freq: Status: Active Protocol: Document 02/06/19 11:25 [facility] (Rec: 02/10/19 09:51 [facility] [email or web address]) Manual Assessments Soft Tissue Assessment Soft Tissue Mobility Assessment guarding and spasm of the right biceps, deltiod, upper trapezius, common extensor tendon, supinator muscle Joint Mobility Assessment Joint Mobility Assessment very limited R elbow and wrist ROM, guarded right shoulder ROM, Other Manual Assessments Other Manual Assessments swelling noted over the right wrist and fingers PT-OP-J Posture/Palpation/Skin Start: 02/10/19 09:22 Freq: Status: Active Protocol: Document 02/06/19 11:25 [facility] (Rec: 02/10/19 09:51 [facility] [email or web address]) Palpation Assessment Location Three Palpation Location right supinator muscle Palpation Findings Soft Tissue Tightness,Spasm, Muscle Guarding,Tenderness Two Palpation Location common extensor tendon R Palpation Findings Soft Tissue Tightness,Spasm, Muscle Guarding,Tenderness One Palpation Location right radial head Palpation Findings Tenderness PT-OP-K Range of Motion Start: 02/10/19 09:51 Freq: Status: Active Protocol: Document 02/06/19 11:15 [facility] (Rec: 02/11/19 18:19 [facility] [id number]) Shoulder Goniometric Range of Motion Shoulder Right Active Testing Position Supine Flexion 150 External Rotation at 90 degrees 35 Abduction Elbow/Forearm Range of Motion Elbow/Forearm Right Passive ROM Testing Position Supine Elbow Flexion (degrees) 95 Elbow Extension (degrees) 38 Pronation (degrees) 30 Supination (degrees) 15 Wrist Goniometric Range of Motion Wrist Right Flexion Active (degrees) 50 Extension Active (degrees) 20 PT-OP-M Strength Start: 02/10/19 09:22 Freq: Status: Active Protocol: Document 02/06/19 11:25 [facility] (Rec: 02/10/19 09:51 [facility] [email or web address]) Shoulder Strength Shoulder Manual Muscle Testing Right Flexion 2+ Poor+ Abduction (C5) 2+ Poor+ External Rotation 2+ Poor+ Elbow/Forearm Strength Elbow and Forearm Manual Muscle Testing Right Flexion (C6) 2 Poor Extension (C7) 2 Poor Pronation 2 Poor Supination 2 Poor Wrist Strength Wrist Manual Muscle Testing Right Flexion (C7) 2- Poor- Extension (C6) 2- Poor- Ulnar Deviation 2- Poor- Radial Deviation 2- Poor- PT-OP-Q Treatments Start: 02/10/19 09:22 Freq: Status: Active Protocol: Document 02/18/19 17:44 [facility] (Rec: 02/18/19 17:56 [facility] [email or web address]) Therapeutic Exercises Supine Exercises 3 Supine Exercise Name shoulder ER with wand Reps/Minutes 2 x 10 2 Supine Exercise Name supine shoulder flexion AAROM with wand Reps/Minutes x 10 reps 1 Supine Exercise Name elbow flexion with supination and elbow extension with pronation Sitting Exercises pully Sitting Exercise Name flex & abd Side right Reps/Minutes 15 ea Standing Exercises doorway Standing Exercise Name biceps ( elbow ext stretch Side right Reps/Minutes 45 sec 4 Standing Exercise Name standing wrist mobilitzations and compressions Reps/Minutes 3 min Comments right on elevated plinth with squats, side sways, calf raises 3 Standing Exercise Name standing small ball rolls with the right hand on the ball Reps/Minutes 2 min Comments on elevated plinth table 1 Standing Exercise Name shoulder pendullum Side right Reps/Minutes 2 min Manual Therapy Treatment Soft Tissue Mobilization 1 Body Location right biceps, brachialis, brachioradialis,wrist flexors Mobilization Type Myofascial Release,Strumming Intensity/Depth Superficial Body Position Supine Joint Mobilizations 1 Joint right wrist mobilizations for extension and flexion PT-OP-R Modalities Start: 02/10/19 09:22 Freq: Status: Active Protocol: Document 02/13/19 14:20 [facility] (Rec: 02/13/19 14:25 [facility] [email or web address]) Hot Pack/Cold Pack Treatment cold Location R elbow Patient Position Hooklying Treatment Duration (minutes) 10 PT-OP-T Assessment and Plan Start: 02/10/19 09:22 Freq: Status: Active Protocol: Document 02/18/19 17:44 [facility] (Rec: 02/18/19 17:56 [facility] [email or web address]) Physical Therapy Assessment Assessment Summary Assessment good improvement with wrist ROM today and slowly improving elbow ROM Physical Therapy Plan Frequency and Duration Frequency of Treatment 2x/Week Duration of Treatment 8 Plan of Care Start Date 09/26/19 Plan of Care End Date 03/20/19 Therapeutic Interventions Therapeutic Interventions Manual Therapy,Patient/ Caregiver Education,Self-Care/ Home Management,Soft Tissue Mobilization,Therapeutic Exercises Next Visit Focus/Plan Next Note Type Treatment Note Next Visit Plan continue progressing elbow, wrist, and shoulder ROM, walking with decreased guarding of the right arm, manual therapy treatments for improved ROM
--- NOTE | 2019-02-25 15:49 | PT.OTN ---
Current Diagnoses Pain in right elbow (02/25/19) Nondisplaced fracture of head of right radius, initial encounter for closed fracture (02/25/19) Physical Therapy Treatment Note PT-OP-A Visit Information Start: 02/10/19 09:22 Freq: Status: Active Protocol: Document 02/25/19 15:38 [facility] (Rec: 02/25/19 15:49 [facility] [email or web address]) Out-Patient Physical Therapy Visit Information Visit Information Visit Type Treatment Note Visit Start Time 13:15 Visit Stop Time 13:45 Total Visit Minutes 30 Visit Number 4 PT-OP-B Current Condition Start: 02/10/19 09:22 Freq: Status: Active Protocol: Document 02/06/19 11:25 [facility] (Rec: 02/10/19 09:51 [facility] [email or web address]) Current Condition History of Current Condition Onset Date 12/23/18 Current Complaints right sided elbow stiffness and lack of ROM or functional use History of Current Condition Leeanne is a 63 year old female who fell on 12/23/18. X-ray report taken on 12/24/18 revealed a nondisplaced fracture of the right radial head. There was also a large amount of elbow effusion present. Leeanne was placed in a sling and she wore this until she saw Dr. Pacheco on 02/03 who had her discontinue use of the sling and only wear it when she is in crowds. She was presribed PT at this time. Her current complaints include severly limited elbow ROM, swelling, difficulty moving her fingers, inablilty to hold items in her right hand, pain with any twisting and unable to perform. Treatment Goals Patient/Caregiver Goals Leeanne would like a full recovery of her elbow with full ROM and strength Prior Functional Status Baseline Function- ADL's Modified Independent Baseline Function- Mobility Modified Independent Current Functional Impairments (Reported) Functional Limitations- ADL's limited with anything that requires use of her right hand or arm Functional Limitations- Recreation/ unable to lift hay vikas and Hobbies has to modify for activities such as sweeping the barn, hasn't been able to go on hikes due to pain and limited elbow mobility PT-OP-C Subjective Start: 02/10/19 09:22 Freq: Status: Active Protocol: Document 02/25/19 15:38 [facility] (Rec: 02/25/19 15:49 [facility] [email or web address]) OP-PT Subjective Patient Comments Patient Comments pt reports she has been able to use her arm more, she has been trying to type with her right hand. PT-OP-F Manual Assessment Start: 02/10/19 09:22 Freq: Status: Active Protocol: Document 02/06/19 11:25 [facility] (Rec: 02/10/19 09:51 [facility] [email or web address]) Manual Assessments Soft Tissue Assessment Soft Tissue Mobility Assessment guarding and spasm of the right biceps, deltiod, upper trapezius, common extensor tendon, supinator muscle Joint Mobility Assessment Joint Mobility Assessment very limited R elbow and wrist ROM, guarded right shoulder ROM, Other Manual Assessments Other Manual Assessments swelling noted over the right wrist and fingers PT-OP-J Posture/Palpation/Skin Start: 02/10/19 09:22 Freq: Status: Active Protocol: Document 02/06/19 11:25 [facility] (Rec: 02/10/19 09:51 [facility] [email or web address]) Palpation Assessment Location Three Palpation Location right supinator muscle Palpation Findings Soft Tissue Tightness,Spasm, Muscle Guarding,Tenderness Two Palpation Location common extensor tendon R Palpation Findings Soft Tissue Tightness,Spasm, Muscle Guarding,Tenderness One Palpation Location right radial head Palpation Findings Tenderness PT-OP-K Range of Motion Start: 02/10/19 09:51 Freq: Status: Active Protocol: Document 02/06/19 11:15 [facility] (Rec: 02/11/19 18:19 [facility] [id number]) Shoulder Goniometric Range of Motion Shoulder Right Active Testing Position Supine Flexion 150 External Rotation at 90 degrees 35 Abduction Elbow/Forearm Range of Motion Elbow/Forearm Right Passive ROM Testing Position Supine Elbow Flexion (degrees) 95 Elbow Extension (degrees) 38 Pronation (degrees) 30 Supination (degrees) 15 Wrist Goniometric Range of Motion Wrist Right Flexion Active (degrees) 50 Extension Active (degrees) 20 PT-OP-M Strength Start: 02/10/19 09:22 Freq: Status: Active Protocol: Document 02/06/19 11:25 [facility] (Rec: 02/10/19 09:51 [facility] [email or web address]) Shoulder Strength Shoulder Manual Muscle Testing Right Flexion 2+ Poor+ Abduction (C5) 2+ Poor+ External Rotation 2+ Poor+ Elbow/Forearm Strength Elbow and Forearm Manual Muscle Testing Right Flexion (C6) 2 Poor Extension (C7) 2 Poor Pronation 2 Poor Supination 2 Poor Wrist Strength Wrist Manual Muscle Testing Right Flexion (C7) 2- Poor- Extension (C6) 2- Poor- Ulnar Deviation 2- Poor- Radial Deviation 2- Poor- PT-OP-Q Treatments Start: 02/10/19 09:22 Freq: Status: Active Protocol: Document 02/25/19 15:38 [facility] (Rec: 02/25/19 15:49 [facility] [email or web address]) Therapeutic Exercises Sitting Exercises pully Sitting Exercise Name flex & abd Side right Reps/Minutes 15 ea Standing Exercises 5 Standing Exercise Name standing shoulder extension with stick 4 Standing Exercise Name standing wrist mobilitzations and compressions Reps/Minutes 3 min Comments right on elevated plinth with squats, side sways, calf raises Other Exercises 1 Other Exercise Name right hand tendon gliding Manual Therapy Treatment Soft Tissue Mobilization 1 Body Location right biceps, brachialis, brachioradialis,wrist flexors Mobilization Type Myofascial Release,Strumming Intensity/Depth Superficial Body Position Supine Joint Mobilizations 1 Joint right wrist mobilizations for extension and flexion GH Joint R Direction inf & distraction Grade II Manual Techniques 1 Type wrist distraction with ROM PT-OP-R Modalities Start: 02/10/19 09:22 Freq: Status: Active Protocol: Document 02/13/19 14:20 [facility] (Rec: 02/13/19 14:25 [facility] [email or web address]) Hot Pack/Cold Pack Treatment cold Location R elbow Patient Position Hooklying Treatment Duration (minutes) 10 PT-OP-T Assessment and Plan Start: 02/10/19 09:22 Freq: Status: Active Protocol: Document 02/25/19 15:38 [facility] (Rec: 02/25/19 15:49 [facility] [email or web address]) Physical Therapy Assessment Assessment Summary Assessment continued increase in shoulder , wrist, and elbow ROM. Added tendon gliding for the hand in today. Supination is slowly improving. Pt was 15 min late today so treatment was shortened Physical Therapy Plan Next Visit Focus/Plan Next Note Type Treatment Note Next Visit Plan continue progressing elbow, wrist, and shoulder ROM, walking with decreased guarding of the right arm, manual therapy treatments for improved ROM
--- NOTE | 2019-03-05 12:59 | PT.OTN ---
Current Diagnoses Pain in right elbow (03/05/19) Nondisplaced fracture of head of right radius, initial encounter for closed fracture (03/05/19) Physical Therapy Treatment Note PT-OP-A Visit Information Start: 02/10/19 09:22 Freq: Status: Active Protocol: Document 03/05/19 12:46 [facility] (Rec: 03/05/19 12:59 [facility] [id number]) Out-Patient Physical Therapy Visit Information Visit Information Visit Type Treatment Note Visit Start Time 11:30 Visit Stop Time 12:15 Total Visit Minutes 45 Visit Number 5 PT-OP-B Current Condition Start: 02/10/19 09:22 Freq: Status: Active Protocol: Document 02/06/19 11:25 [facility] (Rec: 02/10/19 09:51 [facility] [email or web address]) Current Condition History of Current Condition Onset Date 12/23/18 Current Complaints right sided elbow stiffness and lack of ROM or functional use History of Current Condition Leeanne is a 63 year old female who fell on 12/23/18. X-ray report taken on 12/24/18 revealed a nondisplaced fracture of the right radial head. There was also a large amount of elbow effusion present. Leeanne was placed in a sling and she wore this until she saw Dr. Pacheco on 02/03 who had her discontinue use of the sling and only wear it when she is in crowds. She was presribed PT at this time. Her current complaints include severly limited elbow ROM, swelling, difficulty moving her fingers, inablilty to hold items in her right hand, pain with any twisting and unable to perform. Treatment Goals Patient/Caregiver Goals Leeanne would like a full recovery of her elbow with full ROM and strength Prior Functional Status Baseline Function- ADL's Modified Independent Baseline Function- Mobility Modified Independent Current Functional Impairments (Reported) Functional Limitations- ADL's limited with anything that requires use of her right hand or arm Functional Limitations- Recreation/ unable to lift hay vikas and Hobbies has to modify for activities such as sweeping the barn, hasn't been able to go on hikes due to pain and limited elbow mobility PT-OP-C Subjective Start: 02/10/19 09:22 Freq: Status: Active Protocol: Document 03/05/19 12:46 [facility] (Rec: 03/05/19 12:59 [facility] [id number]) OP-PT Subjective Patient Comments Patient Comments pt reports she was able to floss a few of her teeth now. She is still not able to eat with her right hand PT-OP-F Manual Assessment Start: 02/10/19 09:22 Freq: Status: Active Protocol: Document 02/06/19 11:25 [facility] (Rec: 02/10/19 09:51 [facility] [email or web address]) Manual Assessments Soft Tissue Assessment Soft Tissue Mobility Assessment guarding and spasm of the right biceps, deltiod, upper trapezius, common extensor tendon, supinator muscle Joint Mobility Assessment Joint Mobility Assessment very limited R elbow and wrist ROM, guarded right shoulder ROM, Other Manual Assessments Other Manual Assessments swelling noted over the right wrist and fingers PT-OP-J Posture/Palpation/Skin Start: 02/10/19 09:22 Freq: Status: Active Protocol: Document 02/06/19 11:25 [facility] (Rec: 02/10/19 09:51 [facility] [email or web address]) Palpation Assessment Location Three Palpation Location right supinator muscle Palpation Findings Soft Tissue Tightness,Spasm, Muscle Guarding,Tenderness Two Palpation Location common extensor tendon R Palpation Findings Soft Tissue Tightness,Spasm, Muscle Guarding,Tenderness One Palpation Location right radial head Palpation Findings Tenderness PT-OP-K Range of Motion Start: 02/10/19 09:51 Freq: Status: Active Protocol: Document 02/06/19 11:15 [facility] (Rec: 02/11/19 18:19 [facility] [id number]) Shoulder Goniometric Range of Motion Shoulder Right Active Testing Position Supine Flexion 150 External Rotation at 90 degrees 35 Abduction Elbow/Forearm Range of Motion Elbow/Forearm Right Passive ROM Testing Position Supine Elbow Flexion (degrees) 95 Elbow Extension (degrees) 38 Pronation (degrees) 30 Supination (degrees) 15 Wrist Goniometric Range of Motion Wrist Right Flexion Active (degrees) 50 Extension Active (degrees) 20 PT-OP-M Strength Start: 02/10/19 09:22 Freq: Status: Active Protocol: Document 02/06/19 11:25 [facility] (Rec: 02/10/19 09:51 [facility] [email or web address]) Shoulder Strength Shoulder Manual Muscle Testing Right Flexion 2+ Poor+ Abduction (C5) 2+ Poor+ External Rotation 2+ Poor+ Elbow/Forearm Strength Elbow and Forearm Manual Muscle Testing Right Flexion (C6) 2 Poor Extension (C7) 2 Poor Pronation 2 Poor Supination 2 Poor Wrist Strength Wrist Manual Muscle Testing Right Flexion (C7) 2- Poor- Extension (C6) 2- Poor- Ulnar Deviation 2- Poor- Radial Deviation 2- Poor- PT-OP-Q Treatments Start: 02/10/19 09:22 Freq: Status: Active Protocol: Document 03/05/19 12:46 [facility] (Rec: 03/05/19 12:59 [facility] [id number]) Cardio Equipment Upper Body Ergometer (UBE) Duration (Minutes) 4 RPM 120 Other 2 min forward and 2 min backwards Therapeutic Exercises Sitting Exercises pully Sitting Exercise Name flex & abd Side right Reps/Minutes 15 ea 1 Sitting Exercise Name seated wrist flexion, ext, supination, pronation Side right Resistance 1# Reps/Minutes 2 x 10 reps Standing Exercises 4 Standing Exercise Name standing wrist mobilitzations and compressions Reps/Minutes 3 min Comments right on elevated plinth with squats, side sways, calf raises 3 Standing Exercise Name standing small ball rolls with the right hand on the ball Reps/Minutes 2 min Comments on elevated plinth table Other Exercises 2 Other Exercise Name quadraped weight bearing through UE and rock backs 1 Other Exercise Name right hand tendon gliding Manual Therapy Treatment Soft Tissue Mobilization 1 Body Location right biceps, brachialis, brachioradialis,wrist flexors Mobilization Type Myofascial Release,Strumming Intensity/Depth Superficial Body Position Supine Joint Mobilizations 1 Joint right wrist mobilizations for extension and flexion GH Joint R Direction inf & distraction Grade II Manual Techniques 2 Type manual stretching for elbow flexion/extension 1 Type wrist distraction with ROM PT-OP-R Modalities Start: 02/10/19 09:22 Freq: Status: Active Protocol: Document 02/13/19 14:20 [facility] (Rec: 02/13/19 14:25 [facility] [email or web address]) Hot Pack/Cold Pack Treatment cold Location R elbow Patient Position Hooklying Treatment Duration (minutes) 10 PT-OP-T Assessment and Plan Start: 02/10/19 09:22 Freq: Status: Active Protocol: Document 03/05/19 12:46 [facility] (Rec: 03/05/19 12:59 [facility] [id number]) Physical Therapy Assessment Assessment Summary Assessment began the UBE today with good tolerance. Slowing inproving elbow ROM, sustained the stretch more today with wrist extension. Leeanne is using her right UE more for functional activities at home now Physical Therapy Plan Frequency and Duration Frequency of Treatment 2x/Week Duration of Treatment 8 Plan of Care Start Date 02/06/19 Plan of Care End Date 03/20/19 Therapeutic Interventions Therapeutic Interventions Manual Therapy,Patient/ Caregiver Education,Self-Care/ Home Management,Soft Tissue Mobilization,Therapeutic Exercises Next Visit Focus/Plan Next Note Type Treatment Note Next Visit Plan continue progressing elbow, wrist, and shoulder ROM, walking with decreased guarding of the right arm, manual therapy treatments for improved ROM
--- NOTE | 2019-03-11 16:06 | PT.OTN ---
Current Diagnoses Pain in right elbow (03/11/19) Nondisplaced fracture of head of right radius, initial encounter for closed fracture (03/11/19) Physical Therapy Treatment Note PT-OP-A Visit Information Start: 02/10/19 09:22 Freq: Status: Active Protocol: Document 03/11/19 11:18 SP (Rec: 03/11/19 16:06 SP [email or web address]) Out-Patient Physical Therapy Visit Information Visit Information Visit Type Treatment Note Visit Start Time 10:38 Visit Stop Time 11:18 Total Visit Minutes 40 Visit Number 6 Number of CLINICAL NUTRITION MANAGER Visits 1 PT-OP-B Current Condition Start: 02/10/19 09:22 Freq: Status: Active Protocol: Document 02/06/19 11:25 [facility] (Rec: 02/10/19 09:51 [facility] [email or web address]) Current Condition History of Current Condition Onset Date 12/23/18 Current Complaints right sided elbow stiffness and lack of ROM or functional use History of Current Condition Leeanne is a 63 year old female who fell on 12/23/18. X-ray report taken on 12/24/18 revealed a nondisplaced fracture of the right radial head. There was also a large amount of elbow effusion present. Leeanne was placed in a sling and she wore this until she saw Dr. Pcaheco on 02/03 who had her discontinue use of the sling and only wear it when she is in crowds. She was presribed PT at this time. Her current complaints include severly limited elbow ROM, swelling, difficulty moving her fingers, inablilty to hold items in her right hand, pain with any twisting and unable to perform. Treatment Goals Patient/Caregiver Goals Leeanne would like a full recovery of her elbow with full ROM and strength Prior Functional Status Baseline Function- ADL's Modified Independent Baseline Function- Mobility Modified Independent Current Functional Impairments (Reported) Functional Limitations- ADL's limited with anything that requires use of her right hand or arm Functional Limitations- Recreation/ unable to lift hay vikas and Hobbies has to modify for activities such as sweeping the barn, hasn't been able to go on hikes due to pain and limited elbow mobility PT-OP-C Subjective Start: 02/10/19 09:22 Freq: Status: Active Protocol: Document 03/11/19 11:18 SP (Rec: 03/11/19 16:06 SP [email or web address]) OP-PT Subjective Patient Comments Patient Comments Pt stated has been working on holding her glass but still unable to bring it to her mouth. PT-OP-F Manual Assessment Start: 02/10/19 09:22 Freq: Status: Active Protocol: Document 02/06/19 11:25 [facility] (Rec: 02/10/19 09:51 [facility] [email or web address]) Manual Assessments Soft Tissue Assessment Soft Tissue Mobility Assessment guarding and spasm of the right biceps, deltiod, upper trapezius, common extensor tendon, supinator muscle Joint Mobility Assessment Joint Mobility Assessment very limited R elbow and wrist ROM, guarded right shoulder ROM, Other Manual Assessments Other Manual Assessments swelling noted over the right wrist and fingers PT-OP-J Posture/Palpation/Skin Start: 02/10/19 09:22 Freq: Status: Active Protocol: Document 02/06/19 11:25 [facility] (Rec: 02/10/19 09:51 [facility] [email or web address]) Palpation Assessment Location Three Palpation Location right supinator muscle Palpation Findings Soft Tissue Tightness,Spasm, Muscle Guarding,Tenderness Two Palpation Location common extensor tendon R Palpation Findings Soft Tissue Tightness,Spasm, Muscle Guarding,Tenderness One Palpation Location right radial head Palpation Findings Tenderness PT-OP-K Range of Motion Start: 02/10/19 09:51 Freq: Status: Active Protocol: Document 02/06/19 11:15 [facility] (Rec: 02/11/19 18:19 [facility] [id number]) Shoulder Goniometric Range of Motion Shoulder Right Active Testing Position Supine Flexion 150 External Rotation at 90 degrees 35 Abduction Elbow/Forearm Range of Motion Elbow/Forearm Right Passive ROM Testing Position Supine Elbow Flexion (degrees) 95 Elbow Extension (degrees) 38 Pronation (degrees) 30 Supination (degrees) 15 Wrist Goniometric Range of Motion Wrist Right Flexion Active (degrees) 50 Extension Active (degrees) 20 PT-OP-M Strength Start: 02/10/19 09:22 Freq: Status: Active Protocol: Document 02/06/19 11:25 [facility] (Rec: 02/10/19 09:51 [facility] [email or web address]) Shoulder Strength Shoulder Manual Muscle Testing Right Flexion 2+ Poor+ Abduction (C5) 2+ Poor+ External Rotation 2+ Poor+ Elbow/Forearm Strength Elbow and Forearm Manual Muscle Testing Right Flexion (C6) 2 Poor Extension (C7) 2 Poor Pronation 2 Poor Supination 2 Poor Wrist Strength Wrist Manual Muscle Testing Right Flexion (C7) 2- Poor- Extension (C6) 2- Poor- Ulnar Deviation 2- Poor- Radial Deviation 2- Poor- PT-OP-Q Treatments Start: 02/10/19 09:22 Freq: Status: Active Protocol: Document 03/11/19 11:18 SP (Rec: 03/11/19 16:06 SP [email or web address]) Cardio Equipment Upper Body Ergometer (UBE) Duration (Minutes) 5 RPM 120 Other 4 min forward, 1 min backward Therapeutic Exercises Supine Exercises 1 Supine Exercise Name manual resisted wrist flex/ext /pron/ light sup Side right Reps/Minutes 5 reps each direction Comments pt stated is using 1# wt HEP. Sitting Exercises scap retraction/depression Side bilateral Reps/Minutes 10 sec hold x5 pully Sitting Exercise Name flex & abd Side right Reps/Minutes 15 ea Standing Exercises 4 Standing Exercise Name standing wrist mobilitzations and compressions Reps/Minutes 3 min Comments right on elevated plinth with squats, side ways, calf raises 2 Standing Exercise Name elbow ext (elbow at side) Side right Equipment Used AROM Reps/Minutes 2x8 Comments cued scap stabilization, reach toward floor Manual Therapy Treatment Soft Tissue Mobilization 1 Body Location right biceps, brachialis, brachioradialis,wrist flexors Mobilization Type Myofascial Release,Strumming Intensity/Depth Superficial Body Position Supine Joint Mobilizations 1 Joint right wrist mobilizations for extension, flexion, RD, UD Comments Instruction in self application (forearm at side) PT-OP-R Modalities Start: 02/10/19 09:22 Freq: Status: Active Protocol: Document 02/13/19 14:20 LR (Rec: 02/13/19 14:25 [facility] [email or web address]) Hot Pack/Cold Pack Treatment cold Location R elbow Patient Position Hooklying Treatment Duration (minutes) 10 PT-OP-T Assessment and Plan Start: 02/10/19 09:22 Freq: Status: Active Protocol: Document 03/11/19 11:18 SP (Rec: 03/11/19 16:06 SP [email or web address]) Physical Therapy Assessment Assessment Summary Assessment Continued UBE with good increased tolerance forward, did not tolerate > 1 min backward today. Pt noted improved posture and range with elbow ext arm at side, felt more wrist movement post manual and instruction in self wrist mobes. Encouraged awareness of arm movement/ swing when walking. Physical Therapy Plan Frequency and Duration Frequency of Treatment 2x/Week Duration of Treatment 8 Plan of Care Start Date 02/06/19 Plan of Care End Date 03/20/19 Therapeutic Interventions Therapeutic Interventions Manual Therapy,Patient/ Caregiver Education,Self-Care/ Home Management,Soft Tissue Mobilization,Therapeutic Exercises Next Visit Focus/Plan Next Note Type Treatment Note Next Visit Plan continue progressing elbow, wrist, and shoulder ROM, walking with decreased guarding of the right arm, manual therapy treatments for improved ROM
--- NOTE | 2019-03-14 11:19 | PT.OTN ---
Addendum entered and electronically signed by Madonna Young, GRANT 03/14/19 12:08: Review theraputty registration representative strengthening next tx. Original Note: Current Diagnoses Pain in right elbow (03/14/19) Nondisplaced fracture of head of right radius, initial encounter for closed fracture (03/14/19) Physical Therapy Treatment Note PT-OP-A Visit Information Start: 02/10/19 09:22 Freq: Status: Active Protocol: Document 03/14/19 11:19 SP (Rec: 03/14/19 12:07 SP [email or web address]) Out-Patient Physical Therapy Visit Information Visit Information Visit Type Treatment Note Visit Start Time 10:30 Visit Stop Time 11:19 Total Visit Minutes 49 Visit Number 7 Number of BORDER MACHINE OPERATOR Visits 2 PT-OP-B Current Condition Start: 02/10/19 09:22 Freq: Status: Active Protocol: Document 02/06/19 11:25 [facility] (Rec: 02/10/19 09:51 [facility] [email or web address]) Current Condition History of Current Condition Onset Date 12/23/18 Current Complaints right sided elbow stiffness and lack of ROM or functional use History of Current Condition Leeanne is a 63 year old female who fell on 12/23/18. X-ray report taken on 12/24/18 revealed a nondisplaced fracture of the right radial head. There was also a large amount of elbow effusion present. Leeanne was placed in a sling and she wore this until she saw Dr. Pacheco on 02/03 who had her discontinue use of the sling and only wear it when she is in crowds. She was presribed PT at this time. Her current complaints include severly limited elbow ROM, swelling, difficulty moving her fingers, inablilty to hold items in her right hand, pain with any twisting and unable to perform. Treatment Goals Patient/Caregiver Goals Leeanne would like a full recovery of her elbow with full ROM and strength Prior Functional Status Baseline Function- ADL's Modified Independent Baseline Function- Mobility Modified Independent Current Functional Impairments (Reported) Functional Limitations- ADL's limited with anything that requires use of her right hand or arm Functional Limitations- Recreation/ unable to lift hay vikas and Hobbies has to modify for activities such as sweeping the barn, hasn't been able to go on hikes due to pain and limited elbow mobility PT-OP-C Subjective Start: 02/10/19 09:22 Freq: Status: Active Protocol: Document 03/14/19 11:19 SP (Rec: 03/14/19 12:07 SP [email or web address]) OP-PT Subjective Patient Comments Patient Comments Pt stated has been able to carry both dog bowls with food in them now, able to turn her hand palm side up more. Patient Reported Progress Improving PT-OP-F Manual Assessment Start: 02/10/19 09:22 Freq: Status: Active Protocol: Document 02/06/19 11:25 [facility] (Rec: 02/10/19 09:51 [facility] [email or web address]) Manual Assessments Soft Tissue Assessment Soft Tissue Mobility Assessment guarding and spasm of the right biceps, deltiod, upper trapezius, common extensor tendon, supinator muscle Joint Mobility Assessment Joint Mobility Assessment very limited R elbow and wrist ROM, guarded right shoulder ROM, Other Manual Assessments Other Manual Assessments swelling noted over the right wrist and fingers PT-OP-J Posture/Palpation/Skin Start: 02/10/19 09:22 Freq: Status: Active Protocol: Document 02/06/19 11:25 AMH (Rec: 02/10/19 09:51 [facility] [email or web address]) Palpation Assessment Location Three Palpation Location right supinator muscle Palpation Findings Soft Tissue Tightness,Spasm, Muscle Guarding,Tenderness Two Palpation Location common extensor tendon R Palpation Findings Soft Tissue Tightness,Spasm, Muscle Guarding,Tenderness One Palpation Location right radial head Palpation Findings Tenderness PT-OP-K Range of Motion Start: 02/10/19 09:51 Freq: Status: Active Protocol: Document 02/06/19 11:15 AM[facility] (Rec: 02/11/19 18:19 [facility] [id number]) Shoulder Goniometric Range of Motion Shoulder Right Active Testing Position Supine Flexion 150 External Rotation at 90 degrees 35 Abduction Elbow/Forearm Range of Motion Elbow/Forearm Right Passive ROM Testing Position Supine Elbow Flexion (degrees) 95 Elbow Extension (degrees) 38 Pronation (degrees) 30 Supination (degrees) 15 Wrist Goniometric Range of Motion Wrist Right Flexion Active (degrees) 50 Extension Active (degrees) 20 PT-OP-M Strength Start: 02/10/19 09:22 Freq: Status: Active Protocol: Document 02/06/19 11:25 AM[facility] (Rec: 02/10/19 09:51 [facility] [email or web address]) Shoulder Strength Shoulder Manual Muscle Testing Right Flexion 2+ Poor+ Abduction (C5) 2+ Poor+ External Rotation 2+ Poor+ Elbow/Forearm Strength Elbow and Forearm Manual Muscle Testing Right Flexion (C6) 2 Poor Extension (C7) 2 Poor Pronation 2 Poor Supination 2 Poor Wrist Strength Wrist Manual Muscle Testing Right Flexion (C7) 2- Poor- Extension (C6) 2- Poor- Ulnar Deviation 2- Poor- Radial Deviation 2- Poor- PT-OP-Q Treatments Start: 02/10/19 09:22 Freq: Status: Active Protocol: Document 03/14/19 11:19 SP (Rec: 03/14/19 12:07 SP [email or web address]) Cardio Equipment Upper Body Ergometer (UBE) Duration (Minutes) 5 RPM 120 Seat Position 12 Height 2.5 Other 3 min forward, 1.5 min backward Therapeutic Exercises Sitting Exercises FF shld stretch Sitting Exercise Name lat stretch/shld FF AAROM Side bilateral Equipment Used table/chair Reps/Minutes 30 sec x3 Comments Trunk flexion, arms supported ontable, chest toward floor pully Sitting Exercise Name flex & abd Side right Reps/Minutes 2x 15 ea Comments cued relax R shld as arm goes up 1 Sitting Exercise Name wrist flex, ext, sup, pron, RD , UD Side right Resistance 1# Reps/Minutes 2x10 each direction Comments cued slow control into eccentric directioning. Standing Exercises 4 Standing Exercise Name standing wrist mobilitzations and compressions Resistance AAROM R Wrist Reps/Minutes 4 min Comments right on elevated plinth side ways, standing upright (LUE MWM anterior R) 3 Standing Exercise Name Wall slides/finger walking Side right Reps/Minutes 2 min Comments on wall 2 Standing Exercise Name elbow ext (elbow at side) Side right Equipment Used AROM Reps/Minutes 2x8 Comments cued scap stabilization, reach toward floor Manual Therapy Treatment Soft Tissue Mobilization 1 Body Location right biceps, brachialis, brachioradialis,wrist flexors Mobilization Type Myofascial Release,Strumming Intensity/Depth Superficial Body Position Standing Manual Techniques 2 Type manual stretching for elbow flexion/extension 1 Type wrist distraction with ROM PT-OP-R Modalities Start: 02/10/19 09:22 Freq: Status: Active Protocol: Document 03/14/19 11:19 SP (Rec: 03/14/19 12:07 SP [email or web address]) Hot Pack/Cold Pack Treatment cold Location r elbow Patient Position Supine Treatment Duration (minutes) 4 Patient Tolerance Good PT-OP-T Assessment and Plan Start: 02/10/19 09:22 Freq: Status: Active Protocol: Document 03/14/19 11:19 SP (Rec: 03/14/19 12:07 SP [email or web address]) Physical Therapy Assessment Assessment Summary Assessment Pt had good tolerance with ther ex today. Noted improved ROM wrist ext, supination today. Pt was able to tolerate increased 1# resistance wtih pron/sup and added UD/RD today . Physical Therapy Plan Frequency and Duration Frequency of Treatment 2x/Week Duration of Treatment 8 Plan of Care Start Date 02/06/19 Plan of Care End Date 03/20/19 Therapeutic Interventions Therapeutic Interventions Manual Therapy,Patient/ Caregiver Education,Self-Care/ Home Management,Soft Tissue Mobilization,Therapeutic Exercises Next Visit Focus/Plan Next Note Type Treatment Note Next Visit Plan continue progressing elbow, wrist, and shoulder ROM, manual therapy treatments for improved ROM. Pt demonstrates increased R arm swing during walking. Next tx continue 1# wrist added pron/sup/ud/rd and elbow ext, pulleys. Encouraged acquire pulleys for home.
--- NOTE | 2019-03-18 18:42 | PT.OTN ---
Current Diagnoses Pain in right elbow (03/18/19) Nondisplaced fracture of head of right radius, initial encounter for closed fracture (03/18/19) Physical Therapy Treatment Note PT-OP-A Visit Information Start: 02/10/19 09:22 Freq: Status: Active Protocol: Document 03/18/19 18:26 [facility] (Rec: 03/18/19 18:42 [facility] [id number]) Out-Patient Physical Therapy Visit Information Visit Information Visit Type Progress Note Visit Start Time 10:30 Visit Stop Time 11:15 Total Visit Minutes 45 Visit Number 8 PT-OP-B Current Condition Start: 02/10/19 09:22 Freq: Status: Active Protocol: Document 02/06/19 11:25 [facility] (Rec: 02/10/19 09:51 [facility] [id number]) Current Condition History of Current Condition Onset Date 12/23/18 Current Complaints right sided elbow stiffness and lack of ROM or functional use History of Current Condition Leaenne is a 63 year old female who fell on 12/23/18. X-ray report taken on 12/24/18 revealed a nondisplaced fracture of the right radial head. There was also a large amount of elbow effusion present. Leeanne was placed in a sling and she wore this until she saw Dr. Pacheco on 02/03 who had her discontinue use of the sling and only wear it when she is in crowds. She was presribed PT at this time. Her current complaints include severly limited elbow ROM, swelling, difficulty moving her fingers, inablilty to hold items in her right hand, pain with any twisting and unable to perform. Treatment Goals Patient/Caregiver Goals Leeanne would like a full recovery of her elbow with full ROM and strength Prior Functional Status Baseline Function- ADL's Modified Independent Baseline Function- Mobility Modified Independent Current Functional Impairments (Reported) Functional Limitations- ADL's limited with anything that requires use of her right hand or arm Functional Limitations- Recreation/ unable to lift hay vikas and Hobbies has to modify for activities such as sweeping the barn, hasn't been able to go on hikes due to pain and limited elbow mobility PT-OP-C Subjective Start: 02/10/19 09:22 Freq: Status: Active Protocol: Document 03/18/19 18:26 [facility] (Rec: 03/18/19 18:42 [facility] [id number]) OP-PT Subjective Patient Comments Patient Comments pt reports she went on a 2 hour hike with a fast walking partner. By the end of the hike she felt really tight in her right pectoralis muscle PT-OP-F Manual Assessment Start: 02/10/19 09:22 Freq: Status: Active Protocol: Document 02/06/19 11:25 [facility] (Rec: 02/10/19 09:51 [facility] [id number]) Manual Assessments Soft Tissue Assessment Soft Tissue Mobility Assessment guarding and spasm of the right biceps, deltiod, upper trapezius, common extensor tendon, supinator muscle Joint Mobility Assessment Joint Mobility Assessment very limited R elbow and wrist ROM, guarded right shoulder ROM, Other Manual Assessments Other Manual Assessments swelling noted over the right wrist and fingers PT-OP-J Posture/Palpation/Skin Start: 02/10/19 09:22 Freq: Status: Active Protocol: Document 02/06/19 11:25 [facility] (Rec: 02/10/19 09:51 [facility] [id number]) Palpation Assessment Location Three Palpation Location right supinator muscle Palpation Findings Soft Tissue Tightness,Spasm, Muscle Guarding,Tenderness Two Palpation Location common extensor tendon R Palpation Findings Soft Tissue Tightness,Spasm, Muscle Guarding,Tenderness One Palpation Location right radial head Palpation Findings Tenderness PT-OP-K Range of Motion Start: 02/10/19 09:51 Freq: Status: Active Protocol: Document 02/06/19 11:15 [facility] (Rec: 02/11/19 18:19 [facility] [id number]) Shoulder Goniometric Range of Motion Shoulder Right Active Testing Position Supine Flexion 150 External Rotation at 90 degrees 35 Abduction Elbow/Forearm Range of Motion Elbow/Forearm Right Passive ROM Testing Position Supine Elbow Flexion (degrees) 95 Elbow Extension (degrees) 38 Pronation (degrees) 30 Supination (degrees) 15 Wrist Goniometric Range of Motion Wrist Right Flexion Active (degrees) 50 Extension Active (degrees) 20 PT-OP-M Strength Start: 02/10/19 09:22 Freq: Status: Active Protocol: Document 02/06/19 11:25 [facility] (Rec: 02/10/19 09:51 [facility] [id number]) Shoulder Strength Shoulder Manual Muscle Testing Right Flexion 2+ Poor+ Abduction (C5) 2+ Poor+ External Rotation 2+ Poor+ Elbow/Forearm Strength Elbow and Forearm Manual Muscle Testing Right Flexion (C6) 2 Poor Extension (C7) 2 Poor Pronation 2 Poor Supination 2 Poor Wrist Strength Wrist Manual Muscle Testing Right Flexion (C7) 2- Poor- Extension (C6) 2- Poor- Ulnar Deviation 2- Poor- Radial Deviation 2- Poor- PT-OP-Q Treatments Start: 02/10/19 09:22 Freq: Status: Active Protocol: Document 03/18/19 18:26 [facility] (Rec: 03/18/19 18:42 [facility] [id number]) Cardio Equipment Upper Body Ergometer (UBE) Duration (Minutes) 5 RPM 120 Seat Position 12 Height 2.5 Other 3 min forward, 1.5 min backward Therapeutic Exercises Supine Exercises 2 Supine Exercise Name supine foam roll stretch 1 Supine Exercise Name manual resisted wrist flex/ext /pron/ light sup Side right Reps/Minutes 5 reps each direction Comments pt stated is using 1# wt HEP. Sidelying Exercises 1 Sidelying Exercise Name sidelying shoulder ER Reps/Minutes no weight 3 x 10 reps Sitting Exercises pully Sitting Exercise Name flex & abd Side right Reps/Minutes 2x 15 ea Comments cued relax R shld as arm goes up 1 Sitting Exercise Name wrist flex, ext, sup, pron, RD , UD Side right Resistance 1# Reps/Minutes 2x10 each direction Comments cued slow control into eccentric directioning. Standing Exercises 6 Standing Exercise Name standing bicep curls Reps/Minutes 1 # x 10 reps Manual Therapy Treatment Soft Tissue Mobilization 1 Body Location right biceps, brachialis, brachioradialis,wrist flexors Mobilization Type Myofascial Release,Strumming Intensity/Depth Superficial Body Position Standing Joint Mobilizations 2 Joint sidelying scapular mobilizations Comments with manual stretch into scapula upward rotation 1 Joint right wrist mobilizations for extension, flexion, RD, UD Comments Instruction in self application (forearm at side) PT-OP-R Modalities Start: 02/10/19 09:22 Freq: Status: Active Protocol: Document 03/14/19 11:19 [facility] (Rec: 03/14/19 12:07 [facility] [email or web address]) Hot Pack/Cold Pack Treatment cold Location r elbow Patient Position Supine Treatment Duration (minutes) 4 Patient Tolerance Good PT-OP-T Assessment and Plan Start: 02/10/19 09:22 Freq: Status: Active Protocol: Document 03/18/19 18:26 [facility] (Rec: 03/18/19 18:42 [facility] [id number]) Physical Therapy Assessment Goals Five Impairment Poor strength of the R elbow, wrist, and shoulder due to pain/immobility Mcfp Goal (LTG) Improve strength of the right UE to WFL Improved ROM but strength still limited due to pain, able to carry a dog dish now with food in the right hand LTG Duration 8 weeks Four Impairment R sided elbow pain rated 5/10 and decreased functional use of the R elbow Mcfp Goal (LTG) Leeanne has a reduction in pain to 1-2/10 and is able to return to normal functional activities such a twisting and gripping. This is slowly improving and Leeanne notes she is tolerating more activity with less pain LTG Duration 8 weeks + Three Impairment Painful and stiff right shoulder Kiln Transfer Operator Goal (LTG) Decrease muscle guarding and pain and improve full pain free R shoulder ROM Good progress but not yet full ROM LTG Duration 8 weeks Two Impairment Painful and limited ROM of the R wrist Short Term Goal (STG) Improve wrist ROM from 20 degrees extension and 50 degrees flexion to WNL of 70 degress wrist extension and 75 degrees wrist flexion STG Duration 4-6 weeks Kiln Transfer Operator Goal (LTG) GOOD progress wrist extension 45 degrees, flexion 60 degress now One Impairment decreased R elbow ROM Flexion 95, ext 38, pronation 30, supination 15 Short Term Goal (STG) Leeanne shows a increase in elbow ROM by 10 degrees for elbow flexion, extension, pronation and supination STG Duration 4-6 weeks Kiln Transfer Operator Goal (LTG) Leeanne is able to gain full ROM back of her right elbow GOOD PROGRESS elbow flexion 110, extension 20, supination 23, pronation 30 LTG Duration 8 weeks + Assessment Summary Assessment Leeanne is making steady progress with PT. She is still limited in shoulder, elbow, and wrist ROM but it is improving and her tolerance for ther ex is also improving. SHe if finding her self using her right arm more and more for functional activites. She has not been able to tolerate much strengthening other than 1 # weight so she would benefit from continued PT to work both on progressive strengthening and continued ROM improvements. Today I added in a foam roll stretch to open up the pectoralis, added in 1# weight for bicep curls with good tolerance Physical Therapy Plan Frequency and Duration Frequency of Treatment 2x/Week Duration of Treatment 8 Plan of Care Start Date 03/18/19 Plan of Care End Date 05/20/19 Therapeutic Interventions Therapeutic Interventions Manual Therapy,Patient/ Caregiver Education,Self-Care/ Home Management,Soft Tissue Mobilization,Therapeutic Exercises Next Visit Focus/Plan Next Note Type Treatment Note Next Visit Plan continue progressing elbow, wrist, and shoulder ROM, manual therapy treatments for improved ROM. Pt demonstrates increased R arm swing during walking. Next tx continue 1# wrist added pron/sup/ud/rd and elbow ext, pulleys. Encouraged acquire pulleys for home.
--- NOTE | 2019-03-18 18:42 | PT.OPPOC ---
Current Diagnoses Pain in right elbow (03/18/19) Nondisplaced fracture of head of right radius, initial encounter for closed fracture (03/18/19) Visit Care Team Role Provider Type Dawson Pollock MD Primary Care Provider Physician Specialty: Family Practice Address: [address] [place] [address], [id number] Email: [email or web address] Other Providers Specialty: Address: Phone: Fax: Email: Arsen Pacheco MD Attending Provider Non-Staff Specialty: Orthopedic Surgery Address: [address] [place] [address], [address], [place], [address] Email: Plan Of Care PT-OP-T Assessment and Plan Start: 02/10/19 09:22 Freq: Status: Active Protocol: Document 03/18/19 18:26 [facility] (Rec: 03/18/19 18:42 [facility] [id number]) Physical Therapy Assessment Goals Five Impairment Poor strength of the R elbow, wrist, and shoulder due to pain/immobility Criminal Research Specialist Goal (LTG) Improve strength of the right UE to WFL Improved ROM but strength still limited due to pain, able to carry a dog dish now with food in the right hand LTG Duration 8 weeks Four Impairment R sided elbow pain rated 5/10 and decreased functional use of the R elbow Criminal Research Specialist Goal (LTG) Leeanne has a reduction in pain to 1-2/10 and is able to return to normal functional activities such a twisting and gripping. This is slowly improving and Leeanne notes she is tolerating more activity with less pain LTG Duration 8 weeks + Three Impairment Painful and stiff right shoulder Criminal Research Specialist Goal (LTG) Decrease muscle guarding and pain and improve full pain free R shoulder ROM Good progress but not yet full ROM LTG Duration 8 weeks Two Impairment Painful and limited ROM of the R wrist Short Term Goal (STG) Improve wrist ROM from 20 degrees extension and 50 degrees flexion to WNL of 70 degrees wrist extension and 75 degrees wrist flexion STG Duration 4-6 weeks Residential Goal (LTG) GOOD progress wrist extension 45 degrees, flexion 60 degrees now One Impairment decreased R elbow ROM Flexion 95, ext 38, pronation 30, supination 15 Short Term Goal (STG) Leeanne shows a increase in elbow ROM by 10 degrees for elbow flexion, extension, pronation and supination STG Duration 4-6 weeks Criminal Research Specialist Goal (LTG) Leeanne is able to gain full ROM back of her right elbow GOOD PROGRESS elbow flexion 110, extension 20, supination 23, pronation 30 LTG Duration 8 weeks + Assessment Summary Assessment Leeanne is making steady progress with PT. She is still limited in shoulder, elbow, and wrist ROM but it is improving and her tolerance for ther ex is also improving. She if finding her self using her right arm more and more for functional activities. She has not been able to tolerate much strengthening other than 1 # weight so she would benefit from continued PT to work both on progressive strengthening and continued ROM improvements. Today I added in a foam roll stretch to open up the pectoralis, added in 1# weight for bicep curls with good tolerance Physical Therapy Plan Frequency and Duration Frequency of Treatment 2x/Week Duration of Treatment 8 Plan of Care Start Date 03/18/19 Plan of Care End Date 05/20/19 Therapeutic Interventions Therapeutic Interventions Manual Therapy,Patient/ Caregiver Education,Self-Care/ Home Management,Soft Tissue Mobilization,Therapeutic Exercises Next Visit Focus/Plan Next Note Type Treatment Note Next Visit Plan continue progressing elbow, wrist, and shoulder ROM, manual therapy treatments for improved ROM. Pt demonstrates increased R arm swing during walking. Encouraged acquire pulleys for home. Plan of Care Dates Plan of Care Start Date 03/18/19 Plan of Care End Date 05/20/19
--- NOTE | 2019-03-20 12:06 | PT.OTN ---
Current Diagnoses Pain in right elbow (03/20/19) Nondisplaced fracture of head of right radius, initial encounter for closed fracture (03/20/19) Physical Therapy Treatment Note PT-OP-A Visit Information Start: 02/10/19 09:22 Freq: Status: Active Protocol: Document 03/20/19 09:52 [facility] (Rec: 03/20/19 12:06 [facility] [id number]) Out-Patient Physical Therapy Visit Information Visit Information Visit Type Treatment Note Visit Start Time 09:50 Visit Stop Time 10:40 Total Visit Minutes 50 Visit Number 9 Number of [employer] Visits 0 PT-OP-B Current Condition Start: 02/10/19 09:22 Freq: Status: Active Protocol: Document 02/06/19 11:25 [facility] (Rec: 02/10/19 09:51 [facility] [id number]) Current Condition History of Current Condition Onset Date 12/23/18 Current Complaints right sided elbow stiffness and lack of ROM or functional use History of Current Condition Leeanne is a 63 year old female who fell on 12/23/18. X-ray report taken on 12/24/18 revealed a nondisplaced fracture of the right radial head. There was also a large amount of elbow effusion present. Leeanne was placed in a sling and she wore this until she saw Dr. Pacheco on 02/03 who had her discontinue use of the sling and only wear it when she is in crowds. She was presribed PT at this time. Her current complaints include severly limited elbow ROM, swelling, difficulty moving her fingers, inablilty to hold items in her right hand, pain with any twisting and unable to perform. Treatment Goals Patient/Caregiver Goals Leeanne would like a full recovery of her elbow with full ROM and strength Prior Functional Status Baseline Function- ADL's Modified Independent Baseline Function- Mobility Modified Independent Current Functional Impairments (Reported) Functional Limitations- ADL's limited with anything that requires use of her right hand or arm Functional Limitations- Recreation/ unable to lift hay vikas and Hobbies has to modify for activities such as sweeping the barn, hasn't been able to go on hikes due to pain and limited elbow mobility PT-OP-C Subjective Start: 02/10/19 09:22 Freq: Status: Active Protocol: Document 03/20/19 09:52 [facility] (Rec: 03/20/19 12:06 [facility] [id number]) OP-PT Subjective Patient Comments Patient Comments Pt reports she feels some pain and tightness in shoulder & hand also. Patient Reported Progress Improving PT-OP-F Manual Assessment Start: 02/10/19 09:22 Freq: Status: Active Protocol: Document 02/06/19 11:25 [facility] (Rec: 02/10/19 09:51 [facility] [email or web address]) Manual Assessments Soft Tissue Assessment Soft Tissue Mobility Assessment guarding and spasm of the right biceps, deltiod, upper trapezius, common extensor tendon, supinator muscle Joint Mobility Assessment Joint Mobility Assessment very limited R elbow and wrist ROM, guarded right shoulder ROM, Other Manual Assessments Other Manual Assessments swelling noted over the right wrist and fingers PT-OP-J Posture/Palpation/Skin Start: 02/10/19 09:22 Freq: Status: Active Protocol: Document 02/06/19 11:25 [facility] (Rec: 02/10/19 09:51 [facility] [id number]) Palpation Assessment Location Three Palpation Location right supinator muscle Palpation Findings Soft Tissue Tightness,Spasm, Muscle Guarding,Tenderness Two Palpation Location common extensor tendon R Palpation Findings Soft Tissue Tightness,Spasm, Muscle Guarding,Tenderness One Palpation Location right radial head Palpation Findings Tenderness PT-OP-K Range of Motion Start: 02/10/19 09:51 Freq: Status: Active Protocol: Document 02/06/19 11:15 [facility] (Rec: 02/11/19 18:19 [facility] [id number]) Shoulder Goniometric Range of Motion Shoulder Right Active Testing Position Supine Flexion 150 External Rotation at 90 degrees 35 Abduction Elbow/Forearm Range of Motion Elbow/Forearm Right Passive ROM Testing Position Supine Elbow Flexion (degrees) 95 Elbow Extension (degrees) 38 Pronation (degrees) 30 Supination (degrees) 15 Wrist Goniometric Range of Motion Wrist Right Flexion Active (degrees) 50 Extension Active (degrees) 20 PT-OP-M Strength Start: 02/10/19 09:22 Freq: Status: Active Protocol: Document 02/06/19 11:25 [facility] (Rec: 02/10/19 09:51 [facility] [email or web address]) Shoulder Strength Shoulder Manual Muscle Testing Right Flexion 2+ Poor+ Abduction (C5) 2+ Poor+ External Rotation 2+ Poor+ Elbow/Forearm Strength Elbow and Forearm Manual Muscle Testing Right Flexion (C6) 2 Poor Extension (C7) 2 Poor Pronation 2 Poor Supination 2 Poor Wrist Strength Wrist Manual Muscle Testing Right Flexion (C7) 2- Poor- Extension (C6) 2- Poor- Ulnar Deviation 2- Poor- Radial Deviation 2- Poor- PT-OP-Q Treatments Start: 02/10/19 09:22 Freq: Status: Active Protocol: Document 03/20/19 09:52 [facility] (Rec: 03/20/19 12:06 [facility] [id number]) Cardio Equipment Upper Body Ergometer (UBE) Duration (Minutes) 5 RPM 120 Seat Position 12 Height 4 Other half fwd/back Therapeutic Exercises Sitting Exercises pully Sitting Exercise Name flex & abd Side right Reps/Minutes 2x 15 ea Comments cued relax R shld as arm goes up 1 Sitting Exercise Name wrist flex, ext, sup, pron, RD , UD Side right Resistance 1# Reps/Minutes 2x10 each direction Comments cued slow control into eccentric directioning. Manual Therapy Treatment Soft Tissue Mobilization 1 Body Location right biceps, brachialis, brachioradialis,wrist flexors Mobilization Type Myofascial Release,Strumming Intensity/Depth Superficial Body Position Standing Manual Techniques 2 Type manual stretching for elbow flexion/extension PT-OP-R Modalities Start: 02/10/19 09:22 Freq: Status: Active Protocol: Document 03/20/19 09:52 [facility] (Rec: 03/20/19 12:06 [facility] [id number]) Hot Pack/Cold Pack Treatment cold Location r elbow & shoulder Patient Position Supine Treatment Duration (minutes) 10 Patient Tolerance Good PT-OP-T Assessment and Plan Start: 02/10/19 09:22 Freq: Status: Active Protocol: Document 03/20/19 09:52 [facility] (Rec: 03/20/19 12:06 [facility] [id number]) Physical Therapy Assessment Goals Five Impairment Poor strength of the R elbow, wrist, and shoulder due to pain/immobility Skilled Nursing Goal (LTG) Improve strength of the right UE to WFL Improved ROM but strength still limited due to pain, able to carry a dog dish now with food in the right hand LTG Duration 8 weeks Four Impairment R sided elbow pain rated 5/10 and decreased functional use of the R elbow Whiskey Proof Reader Goal (LTG) Leeanne has a reduction in pain to 1-2/10 and is able to return to normal functional activities such a twisting and gripping. This is slowly improving and Leeanne notes she is tolerating more activity with less pain LTG Duration 8 weeks + Three Impairment Painful and stiff right shoulder Whiskey Proof Reader Goal (LTG) Decrease muscle guarding and pain and improve full pain free R shoulder ROM Good progress but not yet full ROM LTG Duration 8 weeks Two Impairment Painful and limited ROM of the R wrist Short Term Goal (STG) Improve wrist ROM from 20 degrees extension and 50 degrees flexion to WNL of 70 degress wrist extension and 75 degrees wrist flexion STG Duration 4-6 weeks Whiskey Proof Reader Goal (LTG) GOOD progress wrist extension 45 degrees, flexion 60 degress now One Impairment decreased R elbow ROM Flexion 95, ext 38, pronation 30, supination 15 Short Term Goal (STG) Leeanne shows a increase in elbow ROM by 10 degrees for elbow flexion, extension, pronation and supination STG Duration 4-6 weeks Whiskey Proof Reader Goal (LTG) Leeanne is able to gain full ROM back of her right elbow GOOD PROGRESS elbow flexion 110, extension 20, supination 23, pronation 30 LTG Duration 8 weeks + Assessment Summary Assessment Pt required min cueing with 1# wt exercises to slow down and work on controlled motion. Pt encouraged to get pully for home to helpw ith elbow and shoulder motion and was very receptive. Cont tightness into flexor mm that improves with soft tissue work. Physical Therapy Plan Frequency and Duration Frequency of Treatment 2x/Week Duration of Treatment 8 Plan of Care Start Date 03/18/19 Plan of Care End Date 05/20/19 Next Visit Focus/Plan Next Note Type Treatment Note Next Visit Plan continue progressing elbow, wrist, and shoulder ROM, manual therapy treatments for improved ROM. Pt demonstrates increased R arm swing during walking. Next tx continue 1# wrist added pron/sup/ud/rd and elbow ext, pulleys. Encouraged acquire pulleys for home.
--- NOTE | 2019-03-25 17:42 | PT.OTN ---
Current Diagnoses Pain in right elbow (03/25/19) Nondisplaced fracture of head of right radius, initial encounter for closed fracture (03/25/19) Physical Therapy Treatment Note PT-OP-A Visit Information Start: 02/10/19 09:22 Freq: Status: Active Protocol: Document 03/25/19 17:16 [facility] (Rec: 03/25/19 17:40 [facility] [email or web address]) Out-Patient Physical Therapy Visit Information Visit Information Visit Type Treatment Note Visit Start Time 09:55 Visit Stop Time 10:30 Total Visit Minutes 35 Visit Number 10 PT-OP-B Current Condition Start: 02/10/19 09:22 Freq: Status: Active Protocol: Document 02/06/19 11:25 [facility] (Rec: 02/10/19 09:51 [facility] [email or web address]) Current Condition History of Current Condition Onset Date 12/23/18 Current Complaints right sided elbow stiffness and lack of ROM or functional use History of Current Condition Leeanne is a 63 year old female who fell on 12/23/18. X-ray report taken on 12/24/18 revealed a nondisplaced fracture of the right radial head. There was also a large amount of elbow effusion present. Leeanne was placed in a sling and she wore this until she saw Dr. Pacheco on 02/03 who had her discontinue use of the sling and only wear it when she is in crowds. She was presribed PT at this time. Her current complaints include severly limited elbow ROM, swelling, difficulty moving her fingers, inablilty to hold items in her right hand, pain with any twisting and unable to perform. Treatment Goals Patient/Caregiver Goals Leeanne would like a full recovery of her elbow with full ROM and strength Prior Functional Status Baseline Function- ADL's Modified Independent Baseline Function- Mobility Modified Independent Current Functional Impairments (Reported) Functional Limitations- ADL's limited with anything that requires use of her right hand or arm Functional Limitations- Recreation/ unable to lift hay vikas and Hobbies has to modify for activities such as sweeping the barn, hasn't been able to go on hikes due to pain and limited elbow mobility PT-OP-C Subjective Start: 02/10/19 09:22 Freq: Status: Active Protocol: Document 03/25/19 17:16 [facility] (Rec: 03/25/19 17:40 [facility] [email or web address]) OP-PT Subjective Patient Comments Patient Comments pt reports she did order a home pully unit Patient Reported Progress Improving PT-OP-F Manual Assessment Start: 02/10/19 09:22 Freq: Status: Active Protocol: Document 02/06/19 11:25 [facility] (Rec: 02/10/19 09:51 [facility] [email or web address]) Manual Assessments Soft Tissue Assessment Soft Tissue Mobility Assessment guarding and spasm of the right biceps, deltiod, upper trapezius, common extensor tendon, supinator muscle Joint Mobility Assessment Joint Mobility Assessment very limited R elbow and wrist ROM, guarded right shoulder ROM, Other Manual Assessments Other Manual Assessments swelling noted over the right wrist and fingers PT-OP-J Posture/Palpation/Skin Start: 02/10/19 09:22 Freq: Status: Active Protocol: Document 02/06/19 11:25 [facility] (Rec: 02/10/19 09:51 [facility] [email or web address]) Palpation Assessment Location Three Palpation Location right supinator muscle Palpation Findings Soft Tissue Tightness,Spasm, Muscle Guarding,Tenderness Two Palpation Location common extensor tendon R Palpation Findings Soft Tissue Tightness,Spasm, Muscle Guarding,Tenderness One Palpation Location right radial head Palpation Findings Tenderness PT-OP-K Range of Motion Start: 02/10/19 09:51 Freq: Status: Active Protocol: Document 02/06/19 11:15 [facility] (Rec: 02/11/19 18:19 [facility] [id number]) Shoulder Goniometric Range of Motion Shoulder Right Active Testing Position Supine Flexion 150 External Rotation at 90 degrees 35 Abduction Elbow/Forearm Range of Motion Elbow/Forearm Right Passive ROM Testing Position Supine Elbow Flexion (degrees) 95 Elbow Extension (degrees) 38 Pronation (degrees) 30 Supination (degrees) 15 Wrist Goniometric Range of Motion Wrist Right Flexion Active (degrees) 50 Extension Active (degrees) 20 PT-OP-M Strength Start: 02/10/19 09:22 Freq: Status: Active Protocol: Document 02/06/19 11:25 [facility] (Rec: 02/10/19 09:51 [facility] [email or web address]) Shoulder Strength Shoulder Manual Muscle Testing Right Flexion 2+ Poor+ Abduction (C5) 2+ Poor+ External Rotation 2+ Poor+ Elbow/Forearm Strength Elbow and Forearm Manual Muscle Testing Right Flexion (C6) 2 Poor Extension (C7) 2 Poor Pronation 2 Poor Supination 2 Poor Wrist Strength Wrist Manual Muscle Testing Right Flexion (C7) 2- Poor- Extension (C6) 2- Poor- Ulnar Deviation 2- Poor- Radial Deviation 2- Poor- PT-OP-Q Treatments Start: 02/10/19 09:22 Freq: Status: Active Protocol: Document 03/25/19 17:16 [facility] (Rec: 03/25/19 17:40 [facility] [email or web address]) Cardio Equipment Upper Body Ergometer (UBE) Duration (Minutes) 5 RPM 120 Seat Position 12 Height 4 Other half fwd/back Therapeutic Exercises Sitting Exercises pully Sitting Exercise Name flex & abd Side right Reps/Minutes 2x 15 ea Comments cued relax R shld as arm goes up Other Exercises 2 Other Exercise Name quadraped rock backs Comments to stretch out arms Manual Therapy Treatment Soft Tissue Mobilization 1 Body Location right biceps, brachialis, brachioradialis,wrist flexors Mobilization Type Myofascial Release,Strumming Intensity/Depth Superficial Body Position Standing Joint Mobilizations 2 Joint sidelying scapular mobilizations Comments with manual stretch into scapula upward rotation 1 Joint right wrist mobilizations for extension, flexion, RD, UD Comments Instruction in self application (forearm at side) Manual Techniques 2 Type manual stretching for elbow flexion/extension PT-OP-R Modalities Start: 02/10/19 09:22 Freq: Status: Active Protocol: Document 03/20/19 09:52 [facility] (Rec: 03/20/19 12:06 [facility] [id number]) Hot Pack/Cold Pack Treatment cold Location r elbow & shoulder Patient Position Supine Treatment Duration (minutes) 10 Patient Tolerance Good PT-OP-T Assessment and Plan Start: 02/10/19 09:22 Freq: Status: Active Protocol: Document 03/25/19 17:16 [facility] (Rec: 03/25/19 17:40 [facility] [email or web address]) Physical Therapy Assessment Assessment Summary Assessment pt late for her appt today so treatment cut short. She is doing better overall with both ROM and strength. 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 She also has a kathi ordered for home Physical Therapy Plan Frequency and Duration Frequency of Treatment 2x/Week Duration of Treatment 8 Plan of Care Start Date 03/18/19 Plan of Care End Date 05/20/19 Therapeutic Interventions Therapeutic Interventions Manual Therapy,Patient/ Caregiver Education,Self-Care/ Home Management,Soft Tissue Mobilization,Therapeutic Exercises Next Visit Focus/Plan Next Note Type Treatment Note Next Visit Plan continue progressing strength and ROM of the shoulder, elbow , and wrist and work to decrease pain.
--- NOTE | 2019-03-27 11:15 | PT.OTN ---
Current Diagnoses Pain in right elbow (03/27/19) Nondisplaced fracture of head of right radius, initial encounter for closed fracture (03/27/19) Physical Therapy Treatment Note PT-OP-A Visit Information Start: 02/10/19 09:22 Freq: Status: Active Protocol: Document 03/27/19 10:30 [facility] (Rec: 03/29/19 13:19 [facility] [email or web address]) Out-Patient Physical Therapy Visit Information Visit Information Visit Type Treatment Note Visit Start Time 10:30 Visit Stop Time 11:15 Total Visit Minutes 45 Visit Number 11 PT-OP-B Current Condition Start: 02/10/19 09:22 Freq: Status: Active Protocol: Document 02/06/19 11:25 [facility] (Rec: 02/10/19 09:51 [facility] [email or web address]) Current Condition History of Current Condition Onset Date 12/23/18 Current Complaints right sided elbow stiffness and lack of ROM or functional use History of Current Condition Leeanne is a 63 year old female who fell on 12/23/18. X-ray report taken on 12/24/18 revealed a nondisplaced fracture of the right radial head. There was also a large amount of elbow effusion present. Leeanne was placed in a sling and she wore this until she saw Dr. Pacheco on 02/03 who had her discontinue use of the sling and only wear it when she is in crowds. She was presribed PT at this time. Her current complaints include severly limited elbow ROM, swelling, difficulty moving her fingers, inablilty to hold items in her right hand, pain with any twisting and unable to perform. Treatment Goals Patient/Caregiver Goals Leeanne would like a full recovery of her elbow with full ROM and strength Prior Functional Status Baseline Function- ADL's Modified Independent Baseline Function- Mobility Modified Independent Current Functional Impairments (Reported) Functional Limitations- ADL's limited with anything that requires use of her right hand or arm Functional Limitations- Recreation/ unable to lift hay vikas and Hobbies has to modify for activities such as sweeping the barn, hasn't been able to go on hikes due to pain and limited elbow mobility PT-OP-C Subjective Start: 02/10/19 09:22 Freq: Status: Active Protocol: Document 03/27/19 10:30 [facility] (Rec: 03/29/19 13:19 [facility] [email or web address]) OP-PT Subjective Patient Comments Patient Comments 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 and her elbow got really sore doing that PT-OP-F Manual Assessment Start: 02/10/19 09:22 Freq: Status: Active Protocol: Document 02/06/19 11:25 [facility] (Rec: 02/10/19 09:51 [facility] [email or web address]) Manual Assessments Soft Tissue Assessment Soft Tissue Mobility Assessment guarding and spasm of the right biceps, deltiod, upper trapezius, common extensor tendon, supinator muscle Joint Mobility Assessment Joint Mobility Assessment very limited R elbow and wrist ROM, guarded right shoulder ROM, Other Manual Assessments Other Manual Assessments swelling noted over the right wrist and fingers PT-OP-J Posture/Palpation/Skin Start: 02/10/19 09:22 Freq: Status: Active Protocol: Document 02/06/19 11:25 [facility] (Rec: 02/10/19 09:51 [facility] [email or web address]) Palpation Assessment Location Three Palpation Location right supinator muscle Palpation Findings Soft Tissue Tightness,Spasm, Muscle Guarding,Tenderness Two Palpation Location common extensor tendon R Palpation Findings Soft Tissue Tightness,Spasm, Muscle Guarding,Tenderness One Palpation Location right radial head Palpation Findings Tenderness PT-OP-K Range of Motion Start: 02/10/19 09:51 Freq: Status: Active Protocol: Document 02/06/19 11:15 [facility] (Rec: 02/11/19 18:19 [facility] [id number]) Shoulder Goniometric Range of Motion Shoulder Right Active Testing Position Supine Flexion 150 External Rotation at 90 degrees 35 Abduction Elbow/Forearm Range of Motion Elbow/Forearm Right Passive ROM Testing Position Supine Elbow Flexion (degrees) 95 Elbow Extension (degrees) 38 Pronation (degrees) 30 Supination (degrees) 15 Wrist Goniometric Range of Motion Wrist Right Flexion Active (degrees) 50 Extension Active (degrees) 20 PT-OP-M Strength Start: 02/10/19 09:22 Freq: Status: Active Protocol: Document 02/06/19 11:25 [facility] (Rec: 02/10/19 09:51 [facility] [email or web address]) Shoulder Strength Shoulder Manual Muscle Testing Right Flexion 2+ Poor+ Abduction (C5) 2+ Poor+ External Rotation 2+ Poor+ Elbow/Forearm Strength Elbow and Forearm Manual Muscle Testing Right Flexion (C6) 2 Poor Extension (C7) 2 Poor Pronation 2 Poor Supination 2 Poor Wrist Strength Wrist Manual Muscle Testing Right Flexion (C7) 2- Poor- Extension (C6) 2- Poor- Ulnar Deviation 2- Poor- Radial Deviation 2- Poor- PT-OP-Q Treatments Start: 02/10/19 09:22 Freq: Status: Active Protocol: Document 03/27/19 10:30 [facility] (Rec: 03/29/19 13:19 [facility] [email or web address]) Cardio Equipment Upper Body Ergometer (UBE) Duration (Minutes) 5 RPM 120 Seat Position 12 Height 4 Other half fwd/back Therapeutic Exercises Sidelying Exercises 1 Sidelying Exercise Name scapula protraction/retraction Reps/Minutes x 10 reps Sitting Exercises pully Sitting Exercise Name flex & abd Side right Reps/Minutes 2x 15 ea Comments cued relax R shld as arm goes up 1 Sitting Exercise Name wrist flex, ext, sup, pron, RD , UD Side right Resistance 1# Reps/Minutes 2x10 each direction Comments cued slow control into eccentric directioning. Other Exercises 2 Other Exercise Name quadraped rock backs Comments to stretch out arms 1 Other Exercise Name right hand tendon gliding Manual Therapy Treatment Soft Tissue Mobilization 1 Body Location right biceps, brachialis, brachioradialis,wrist flexors Mobilization Type Myofascial Release,Strumming Intensity/Depth Superficial Body Position Standing Joint Mobilizations 2 Joint sidelying scapular mobilizations Comments with manual stretch into scapula upward rotation 1 Joint right wrist mobilizations for extension, flexion, RD, UD Comments Instruction in self application (forearm at side) PT-OP-R Modalities Start: 02/10/19 09:22 Freq: Status: Active Protocol: Document 03/20/19 09:52 [facility] (Rec: 03/20/19 12:06 [facility] [id number]) Hot Pack/Cold Pack Treatment cold Location r elbow & shoulder Patient Position Supine Treatment Duration (minutes) 10 Patient Tolerance Good PT-OP-T Assessment and Plan Start: 02/10/19 09:22 Freq: Status: Active Protocol: Document 03/27/19 10:30 [facility] (Rec: 03/29/19 13:19 [facility] [email or web address]) Physical Therapy Assessment Assessment Summary Assessment scapula mobilizations are tolerated well and are helpful with shoulder ROM. Continue to work on scapula stabilization as well and elbow, shoulder, and wrist ROM Physical Therapy Plan Frequency and Duration Frequency of Treatment 2x/Week Duration of Treatment 8 Plan of Care Start Date 03/18/19 Plan of Care End Date 05/20/19 Therapeutic Interventions Therapeutic Interventions Manual Therapy,Patient/ Caregiver Education,Self-Care/ Home Management,Soft Tissue Mobilization,Therapeutic Exercises Next Visit Focus/Plan Next Note Type Treatment Note Next Visit Plan continue progressing strength and ROM of the shoulder, elbow , and wrist and work to decrease pain.
--- NOTE | 2019-04-01 18:37 | PT.OTN ---
Current Diagnoses Pain in right elbow (04/01/19) Nondisplaced fracture of head of right radius, initial encounter for closed fracture (04/01/19) Physical Therapy Treatment Note PT-OP-A Visit Information Start: 02/10/19 09:22 Freq: Status: Active Protocol: Document 04/01/19 18:33 [facility] (Rec: 04/01/19 18:37 [facility] [email or web address]) Out-Patient Physical Therapy Visit Information Visit Information Visit Type Treatment Note Visit Start Time 10:30 Visit Stop Time 11:15 Total Visit Minutes 45 Visit Number 12 PT-OP-B Current Condition Start: 02/10/19 09:22 Freq: Status: Active Protocol: Document 02/06/19 11:25 [facility] (Rec: 02/10/19 09:51 [facility] [email or web address]) Current Condition History of Current Condition Onset Date 12/23/18 Current Complaints right sided elbow stiffness and lack of ROM or functional use History of Current Condition Leeanne is a 63 year old female who fell on 12/23/18. X-ray report taken on 12/24/18 revealed a nondisplaced fracture of the right radial head. There was also a large amount of elbow effusion present. Leeanne was placed in a sling and she wore this until she saw Dr. Pacheco on 02/03 who had her discontinue use of the sling and only wear it when she is in crowds. She was presribed PT at this time. Her current complaints include severly limited elbow ROM, swelling, difficulty moving her fingers, inablilty to hold items in her right hand, pain with any twisting and unable to perform. Treatment Goals Patient/Caregiver Goals Leeanne would like a full recovery of her elbow with full ROM and strength Prior Functional Status Baseline Function- ADL's Modified Independent Baseline Function- Mobility Modified Independent Current Functional Impairments (Reported) Functional Limitations- ADL's limited with anything that requires use of her right hand or arm Functional Limitations- Recreation/ unable to lift hay vikas and Hobbies has to modify for activities such as sweeping the barn, hasn't been able to go on hikes due to pain and limited elbow mobility PT-OP-C Subjective Start: 02/10/19 09:22 Freq: Status: Active Protocol: Document 04/01/19 18:33 [facility] (Rec: 04/01/19 18:37 [facility] [email or web address]) OP-PT Subjective Patient Comments Patient Comments pt reports she had a really good weekend and went hiking. PT-OP-F Manual Assessment Start: 02/10/19 09:22 Freq: Status: Active Protocol: Document 02/06/19 11:25 [facility] (Rec: 02/10/19 09:51 [facility] [email or web address]) Manual Assessments Soft Tissue Assessment Soft Tissue Mobility Assessment guarding and spasm of the right biceps, deltiod, upper trapezius, common extensor tendon, supinator muscle Joint Mobility Assessment Joint Mobility Assessment very limited R elbow and wrist ROM, guarded right shoulder ROM, Other Manual Assessments Other Manual Assessments swelling noted over the right wrist and fingers PT-OP-J Posture/Palpation/Skin Start: 02/10/19 09:22 Freq: Status: Active Protocol: Document 02/06/19 11:25 [facility] (Rec: 02/10/19 09:51 [facility] [email or web address]) Palpation Assessment Location Three Palpation Location right supinator muscle Palpation Findings Soft Tissue Tightness,Spasm, Muscle Guarding,Tenderness Two Palpation Location common extensor tendon R Palpation Findings Soft Tissue Tightness,Spasm, Muscle Guarding,Tenderness One Palpation Location right radial head Palpation Findings Tenderness PT-OP-K Range of Motion Start: 02/10/19 09:51 Freq: Status: Active Protocol: Document 02/06/19 11:15 [facility] (Rec: 02/11/19 18:19 [facility] [id number]) Shoulder Goniometric Range of Motion Shoulder Right Active Testing Position Supine Flexion 150 External Rotation at 90 degrees 35 Abduction Elbow/Forearm Range of Motion Elbow/Forearm Right Passive ROM Testing Position Supine Elbow Flexion (degrees) 95 Elbow Extension (degrees) 38 Pronation (degrees) 30 Supination (degrees) 15 Wrist Goniometric Range of Motion Wrist Right Flexion Active (degrees) 50 Extension Active (degrees) 20 PT-OP-M Strength Start: 02/10/19 09:22 Freq: Status: Active Protocol: Document 02/06/19 11:25 [facility] (Rec: 02/10/19 09:51 [facility] [email or web address]) Shoulder Strength Shoulder Manual Muscle Testing Right Flexion 2+ Poor+ Abduction (C5) 2+ Poor+ External Rotation 2+ Poor+ Elbow/Forearm Strength Elbow and Forearm Manual Muscle Testing Right Flexion (C6) 2 Poor Extension (C7) 2 Poor Pronation 2 Poor Supination 2 Poor Wrist Strength Wrist Manual Muscle Testing Right Flexion (C7) 2- Poor- Extension (C6) 2- Poor- Ulnar Deviation 2- Poor- Radial Deviation 2- Poor- PT-OP-Q Treatments Start: 02/10/19 09:22 Freq: Status: Active Protocol: Document 04/01/19 18:33 [facility] (Rec: 04/01/19 18:37 [facility] [email or web address]) Cardio Equipment Upper Body Ergometer (UBE) Duration (Minutes) 5 RPM 120 Seat Position 12 Height 4 Other half fwd/back Therapeutic Exercises Prone Exercises 1 Prone Exercise Name prone horizontal abduction Sidelying Exercises 2 Sidelying Exercise Name sidelying shoulder ER Reps/Minutes 3 x 10 reps 1 # 1 Sidelying Exercise Name scapula protraction/retraction Reps/Minutes x 10 reps Sitting Exercises pully Sitting Exercise Name flex & abd Side right Reps/Minutes 2x 15 ea Comments cued relax R shld as arm goes up Other Exercises 2 Other Exercise Name quadraped rock backs Comments to stretch out arms 1 Other Exercise Name right hand tendon gliding Manual Therapy Treatment Soft Tissue Mobilization 1 Body Location right biceps, brachialis, brachioradialis,wrist flexors Mobilization Type Myofascial Release,Strumming Intensity/Depth Superficial Body Position Standing Joint Mobilizations 2 Joint sidelying scapular mobilizations Comments with manual stretch into scapula upward rotation 1 Joint right wrist mobilizations for extension, flexion, RD, UD Comments Instruction in self application (forearm at side) PT-OP-R Modalities Start: 02/10/19 09:22 Freq: Status: Active Protocol: Document 03/20/19 09:52 [facility] (Rec: 03/20/19 12:06 [facility] [id number]) Hot Pack/Cold Pack Treatment cold Location r elbow & shoulder Patient Position Supine Treatment Duration (minutes) 10 Patient Tolerance Good PT-OP-T Assessment and Plan Start: 02/10/19 09:22 Freq: Status: Active Protocol: Document 04/01/19 18:33 [facility] (Rec: 04/01/19 18:37 [facility] [email or web address]) Physical Therapy Assessment Assessment Summary Assessment added rotator cuff strengthening for shoulder ER today, continue to work sidelying scapular mobilizations as Leeanne is very tight and limited in her ROM with scapula thoracic rhythm Physical Therapy Plan Frequency and Duration Frequency of Treatment 2x/Week Duration of Treatment 8 Plan of Care Start Date 03/18/19 Plan of Care End Date 05/20/19 Next Visit Focus/Plan Next Note Type Treatment Note Next Visit Plan rotator cuff strengtheing and scapular mobilizations, continue with ROM and manual stretches for the elbow and wrist
--- NOTE | 2019-04-03 13:15 | PT.OTN ---
Current Diagnoses Pain in right elbow (04/03/19) Nondisplaced fracture of head of right radius, initial encounter for closed fracture (04/03/19) Physical Therapy Treatment Note PT-OP-A Visit Information Start: 02/10/19 09:22 Freq: Status: Active Protocol: Document 04/03/19 13:04 [facility] (Rec: 04/03/19 13:15 [facility] [email or web address]) Out-Patient Physical Therapy Visit Information Visit Information Visit Type Treatment Note Visit Start Time 10:30 Visit Stop Time 11:15 Total Visit Minutes 45 Visit Number 13 PT-OP-B Current Condition Start: 02/10/19 09:22 Freq: Status: Active Protocol: Document 02/06/19 11:25 [facility] (Rec: 02/10/19 09:51 [facility] [email or web address]) Current Condition History of Current Condition Onset Date 12/23/18 Current Complaints right sided elbow stiffness and lack of ROM or functional use History of Current Condition Leeanne is a 63 year old female who fell on 12/23/18. X-ray report taken on 12/24/18 revealed a nondisplaced fracture of the right radial head. There was also a large amount of elbow effusion present. Leeanne was placed in a sling and she wore this until she saw Dr. Pacheco on 02/03 who had her discontinue use of the sling and only wear it when she is in crowds. She was presribed PT at this time. Her current complaints include severly limited elbow ROM, swelling, difficulty moving her fingers, inablilty to hold items in her right hand, pain with any twisting and unable to perform. Treatment Goals Patient/Caregiver Goals Leeanne would like a full recovery of her elbow with full ROM and strength Prior Functional Status Baseline Function- ADL's Modified Independent Baseline Function- Mobility Modified Independent Current Functional Impairments (Reported) Functional Limitations- ADL's limited with anything that requires use of her right hand or arm Functional Limitations- Recreation/ unable to lift hay vikas and Hobbies has to modify for activities such as sweeping the barn, hasn't been able to go on hikes due to pain and limited elbow mobility PT-OP-C Subjective Start: 02/10/19 09:22 Freq: Status: Active Protocol: Document 04/03/19 13:04 [facility] (Rec: 04/03/19 13:15 [facility] [email or web address]) OP-PT Subjective Patient Comments Patient Comments feeling all the time like she is doing more with her shoulder and arm. PT-OP-F Manual Assessment Start: 02/10/19 09:22 Freq: Status: Active Protocol: Document 02/06/19 11:25 [facility] (Rec: 02/10/19 09:51 [facility] [email or web address]) Manual Assessments Soft Tissue Assessment Soft Tissue Mobility Assessment guarding and spasm of the right biceps, deltiod, upper trapezius, common extensor tendon, supinator muscle Joint Mobility Assessment Joint Mobility Assessment very limited R elbow and wrist ROM, guarded right shoulder ROM, Other Manual Assessments Other Manual Assessments swelling noted over the right wrist and fingers PT-OP-J Posture/Palpation/Skin Start: 02/10/19 09:22 Freq: Status: Active Protocol: Document 02/06/19 11:25 [facility] (Rec: 02/10/19 09:51 [facility] [email or web address]) Palpation Assessment Location Three Palpation Location right supinator muscle Palpation Findings Soft Tissue Tightness,Spasm, Muscle Guarding,Tenderness Two Palpation Location common extensor tendon R Palpation Findings Soft Tissue Tightness,Spasm, Muscle Guarding,Tenderness One Palpation Location right radial head Palpation Findings Tenderness PT-OP-K Range of Motion Start: 02/10/19 09:51 Freq: Status: Active Protocol: Document 02/06/19 11:15 [facility] (Rec: 02/11/19 18:19 [facility] [id number]) Shoulder Goniometric Range of Motion Shoulder Right Active Testing Position Supine Flexion 150 External Rotation at 90 degrees 35 Abduction Elbow/Forearm Range of Motion Elbow/Forearm Right Passive ROM Testing Position Supine Elbow Flexion (degrees) 95 Elbow Extension (degrees) 38 Pronation (degrees) 30 Supination (degrees) 15 Wrist Goniometric Range of Motion Wrist Right Flexion Active (degrees) 50 Extension Active (degrees) 20 PT-OP-M Strength Start: 02/10/19 09:22 Freq: Status: Active Protocol: Document 02/06/19 11:25 [facility] (Rec: 02/10/19 09:51 [facility] [email or web address]) Shoulder Strength Shoulder Manual Muscle Testing Right Flexion 2+ Poor+ Abduction (C5) 2+ Poor+ External Rotation 2+ Poor+ Elbow/Forearm Strength Elbow and Forearm Manual Muscle Testing Right Flexion (C6) 2 Poor Extension (C7) 2 Poor Pronation 2 Poor Supination 2 Poor Wrist Strength Wrist Manual Muscle Testing Right Flexion (C7) 2- Poor- Extension (C6) 2- Poor- Ulnar Deviation 2- Poor- Radial Deviation 2- Poor- PT-OP-Q Treatments Start: 02/10/19 09:22 Freq: Status: Active Protocol: Document 04/03/19 13:04 [facility] (Rec: 04/03/19 13:15 [facility] [email or web address]) Cardio Equipment Upper Body Ergometer (UBE) Duration (Minutes) 5 RPM 120 Seat Position 12 Height 4 Other half fwd/back Therapeutic Exercises Supine Exercises 2 Supine Exercise Name skull crushers tricep exercise Reps/Minutes 3 x 10 reps with wand 1 Supine Exercise Name manual resisted wrist flex/ext /pron/ light sup Side right Reps/Minutes 5 reps each direction Comments pt stated is using 1# wt HEP. Sidelying Exercises 2 Sidelying Exercise Name sidelying shoulder ER Reps/Minutes 3 x 10 reps 1 # 1 Sidelying Exercise Name scapula protraction/retraction Reps/Minutes x 10 reps Sitting Exercises pully Sitting Exercise Name flex & abd Side right Reps/Minutes 2x 15 ea Comments cued relax R shld as arm goes up Standing Exercises 6 Standing Exercise Name standing bicep curls Reps/Minutes 1# 3 x 10 reps Other Exercises 2 Other Exercise Name quadraped rock backs Comments to stretch out arms 1 Other Exercise Name right hand tendon gliding Manual Therapy Treatment Soft Tissue Mobilization 1 Body Location right biceps, brachialis, brachioradialis,wrist flexors Mobilization Type Myofascial Release,Strumming Intensity/Depth Superficial Body Position Standing Joint Mobilizations 2 Comments with manual stretch into scapula upward rotation 1 Joint right wrist mobilizations for extension, flexion, RD, UD Comments Instruction in self application (forearm at side) Manual Techniques 2 Type manual stretching for elbow flexion/extension 1 Type wrist distraction with ROM PT-OP-R Modalities Start: 02/10/19 09:22 Freq: Status: Active Protocol: Document 03/20/19 09:52 [facility] (Rec: 03/20/19 12:06 [facility] [id number]) Hot Pack/Cold Pack Treatment cold Location r elbow & shoulder Patient Position Supine Treatment Duration (minutes) 10 Patient Tolerance Good PT-OP-T Assessment and Plan Start: 02/10/19 09:22 Freq: Status: Active Protocol: Document 04/03/19 13:04 [facility] (Rec: 04/03/19 13:15 [facility] [email or web address]) Physical Therapy Assessment Assessment Summary Assessment improved shoulder flexion today to 160 and decreased shoulder hiking with activities such as UBE, elbow extension to 20 degrees today following manual stretching Physical Therapy Plan Frequency and Duration Frequency of Treatment 2x/Week Duration of Treatment 8 Plan of Care Start Date 03/18/19 Plan of Care End Date 05/20/19 Next Visit Focus/Plan Next Note Type Treatment Note Next Visit Plan rotator cuff strengthening and scapular mobilizations, continue with ROM and manual stretches for the elbow and wrist
--- NOTE | 2019-04-17 17:24 | PT.OTN ---
Current Diagnoses Pain in right elbow (04/17/19) Nondisplaced fracture of head of right radius, initial encounter for closed fracture (04/17/19) Physical Therapy Treatment Note PT-OP-A Visit Information Start: 02/10/19 09:22 Freq: Status: Active Protocol: Document 04/17/19 15:14 [facility] (Rec: 04/17/19 16:09 [facility] [id number]) Out-Patient Physical Therapy Visit Information Visit Information Visit Type Treatment Note Visit Start Time 15:15 Visit Stop Time 16:00 Total Visit Minutes 45 Visit Number 14 PT-OP-B Current Condition Start: 02/10/19 09:22 Freq: Status: Active Protocol: Document 02/06/19 11:25 [facility] (Rec: 02/10/19 09:51 [facility] [email or web address]) Current Condition History of Current Condition Onset Date 12/23/18 Current Complaints right sided elbow stiffness and lack of ROM or functional use History of Current Condition Leeanne is a 63 year old female who fell on 12/23/18. X-ray report taken on 12/24/18 revealed a nondisplaced fracture of the right radial head. There was also a large amount of elbow effusion present. Leeanne was placed in a sling and she wore this until she saw Dr. Pacheco on 02/03 who had her discontinue use of the sling and only wear it when she is in crowds. She was presribed PT at this time. Her current complaints include severly limited elbow ROM, swelling, difficulty moving her fingers, inablilty to hold items in her right hand, pain with any twisting and unable to perform. Treatment Goals Patient/Caregiver Goals Leeanne would like a full recovery of her elbow with full ROM and strength Prior Functional Status Baseline Function- ADL's Modified Independent Baseline Function- Mobility Modified Independent Current Functional Impairments (Reported) Functional Limitations- ADL's limited with anything that requires use of her right hand or arm Functional Limitations- Recreation/ unable to lift hay vikas and Hobbies has to modify for activities such as sweeping the barn, hasn't been able to go on hikes due to pain and limited elbow mobility PT-OP-C Subjective Start: 02/10/19 09:22 Freq: Status: Active Protocol: Document 04/17/19 15:14 [facility] (Rec: 04/17/19 16:09 [facility] [id number]) OP-PT Subjective Patient Comments Patient Comments has been using the shoulder pully and being active and is really trying to use her shoulder. She feels the grinding in her shoulder in gettin beter. Still not perfectly straight and she wants to work on elbow straightening. PT-OP-F Manual Assessment Start: 02/10/19 09:22 Freq: Status: Active Protocol: Document 02/06/19 11:25 [facility] (Rec: 02/10/19 09:51 [facility] [email or web address]) Manual Assessments Soft Tissue Assessment Soft Tissue Mobility Assessment guarding and spasm of the right biceps, deltiod, upper trapezius, common extensor tendon, supinator muscle Joint Mobility Assessment Joint Mobility Assessment very limited R elbow and wrist ROM, guarded right shoulder ROM, Other Manual Assessments Other Manual Assessments swelling noted over the right wrist and fingers PT-OP-J Posture/Palpation/Skin Start: 02/10/19 09:22 Freq: Status: Active Protocol: Document 02/06/19 11:25 [facility] (Rec: 02/10/19 09:51 [facility] [email or web address]) Palpation Assessment Location Three Palpation Location right supinator muscle Palpation Findings Soft Tissue Tightness,Spasm, Muscle Guarding,Tenderness Two Palpation Location common extensor tendon R Palpation Findings Soft Tissue Tightness,Spasm, Muscle Guarding,Tenderness One Palpation Location right radial head Palpation Findings Tenderness PT-OP-K Range of Motion Start: 02/10/19 09:51 Freq: Status: Active Protocol: Document 02/06/19 11:15 [facility] (Rec: 02/11/19 18:19 [facility] [id number]) Shoulder Goniometric Range of Motion Shoulder Right Active Testing Position Supine Flexion 150 External Rotation at 90 degrees 35 Abduction Elbow/Forearm Range of Motion Elbow/Forearm Right Passive ROM Testing Position Supine Elbow Flexion (degrees) 95 Elbow Extension (degrees) 38 Pronation (degrees) 30 Supination (degrees) 15 Wrist Goniometric Range of Motion Wrist Right Flexion Active (degrees) 50 Extension Active (degrees) 20 PT-OP-M Strength Start: 02/10/19 09:22 Freq: Status: Active Protocol: Document 02/06/19 11:25 [facility] (Rec: 02/10/19 09:51 [facility] [email or web address]) Shoulder Strength Shoulder Manual Muscle Testing Right Flexion 2+ Poor+ Abduction (C5) 2+ Poor+ External Rotation 2+ Poor+ Elbow/Forearm Strength Elbow and Forearm Manual Muscle Testing Right Flexion (C6) 2 Poor Extension (C7) 2 Poor Pronation 2 Poor Supination 2 Poor Wrist Strength Wrist Manual Muscle Testing Right Flexion (C7) 2- Poor- Extension (C6) 2- Poor- Ulnar Deviation 2- Poor- Radial Deviation 2- Poor- PT-OP-Q Treatments Start: 02/10/19 09:22 Freq: Status: Active Protocol: Document 04/17/19 17:21 [facility] (Rec: 04/17/19 17:24 [facility] [email or web address]) Cardio Equipment Upper Body Ergometer (UBE) Duration (Minutes) 5 RPM 120 Seat Position 12 Height 4 Other half fwd/back Therapeutic Exercises Standing Exercises 7 Standing Exercise Name standing rows, shoulder extension, shoulder flexion and triceps ext Equipment Used level 1 Reps/Minutes 2 x 10 reps Comments with theraband 6 Standing Exercise Name standing bicep curls Reps/Minutes 2# 3 x 10 reps 1 Standing Exercise Name standing wall push ups Reps/Minutes x 10 Manual Therapy Treatment Soft Tissue Mobilization 1 Body Location right biceps, brachialis, brachioradialis,wrist flexors Mobilization Type Myofascial Release,Strumming Intensity/Depth Superficial Body Position Standing Joint Mobilizations 1 Joint right wrist mobilizations for extension, flexion, RD, UD Comments Instruction in self application (forearm at side) Manual Techniques 2 Type manual stretching for elbow flexion/extension 1 Type wrist distraction with ROM PT-OP-R Modalities Start: 02/10/19 09:22 Freq: Status: Active Protocol: Document 03/20/19 09:52 [facility] (Rec: 03/20/19 12:06 [facility] [id number]) Hot Pack/Cold Pack Treatment cold Location r elbow & shoulder Patient Position Supine Treatment Duration (minutes) 10 Patient Tolerance Good PT-OP-T Assessment and Plan Start: 02/10/19 09:22 Freq: Status: Active Protocol: Document 04/17/19 17:21 [facility] (Rec: 04/17/19 17:24 [facility] [id number]) Physical Therapy Assessment Assessment Summary Assessment great progress with elbow extension, pt to work at home with long sustained stretch using a wrist weight into extension Physical Therapy Plan Next Visit Focus/Plan Next Note Type Treatment Note Next Visit Plan rotator cuff strengtheing and scapular mobilizations, continue with ROM and manual stretches for the elbow and wrist
--- NOTE | 2019-04-30 14:00 | PT.OTN ---
Current Diagnoses Pain in right elbow (04/30/19) Nondisplaced fracture of head of right radius, initial encounter for closed fracture (04/30/19) Physical Therapy Treatment Note PT-OP-A Visit Information Start: 02/10/19 09:22 Freq: Status: Active Protocol: Document 04/30/19 13:51 [facility] (Rec: 04/30/19 13:59 [facility] [email or web address]) Out-Patient Physical Therapy Visit Information Visit Information Visit Type Treatment Note Visit Start Time 12:00 Visit Stop Time 12:45 Total Visit Minutes 45 Visit Number 15 PT-OP-B Current Condition Start: 02/10/19 09:22 Freq: Status: Active Protocol: Document 02/06/19 11:25 [facility] (Rec: 02/10/19 09:51 [facility] [email or web address]) Current Condition History of Current Condition Onset Date 12/23/18 Current Complaints right sided elbow stiffness and lack of ROM or functional use History of Current Condition Leeanne is a 63 year old female who fell on 12/23/18. X-ray report taken on 12/24/18 revealed a nondisplaced fracture of the right radial head. There was also a large amount of elbow effusion present. Leeanne was placed in a sling and she wore this until she saw Dr. Pacheco on 02/03 who had her discontinue use of the sling and only wear it when she is in crowds. She was presribed PT at this time. Her current complaints include severly limited elbow ROM, swelling, difficulty moving her fingers, inablilty to hold items in her right hand, pain with any twisting and unable to perform. Treatment Goals Patient/Caregiver Goals Leeanne would like a full recovery of her elbow with full ROM and strength Prior Functional Status Baseline Function- ADL's Modified Independent Baseline Function- Mobility Modified Independent Current Functional Impairments (Reported) Functional Limitations- ADL's limited with anything that requires use of her right hand or arm Functional Limitations- Recreation/ unable to lift hay vikas and Hobbies has to modify for activities such as sweeping the barn, hasn't been able to go on hikes due to pain and limited elbow mobility PT-OP-C Subjective Start: 02/10/19 09:22 Freq: Status: Active Protocol: Document 04/30/19 13:51 [facility] (Rec: 04/30/19 13:59 [facility] [email or web address]) OP-PT Subjective Patient Comments Patient Comments pt reports she is using her arm more and more and knows she continues to get better. She is feeling a lot of popping in the right shoulder though. PT-OP-F Manual Assessment Start: 02/10/19 09:22 Freq: Status: Active Protocol: Document 02/06/19 11:25 [facility] (Rec: 02/10/19 09:51 [facility] [email or web address]) Manual Assessments Soft Tissue Assessment Soft Tissue Mobility Assessment guarding and spasm of the right biceps, deltiod, upper trapezius, common extensor tendon, supinator muscle Joint Mobility Assessment Joint Mobility Assessment very limited R elbow and wrist ROM, guarded right shoulder ROM, Other Manual Assessments Other Manual Assessments swelling noted over the right wrist and fingers PT-OP-J Posture/Palpation/Skin Start: 02/10/19 09:22 Freq: Status: Active Protocol: Document 02/06/19 11:25 [facility] (Rec: 02/10/19 09:51 [facility] [email or web address]) Palpation Assessment Location Three Palpation Location right supinator muscle Palpation Findings Soft Tissue Tightness,Spasm, Muscle Guarding,Tenderness Two Palpation Location common extensor tendon R Palpation Findings Soft Tissue Tightness,Spasm, Muscle Guarding,Tenderness One Palpation Location right radial head Palpation Findings Tenderness PT-OP-K Range of Motion Start: 02/10/19 09:51 Freq: Status: Active Protocol: Document 02/06/19 11:15 [facility] (Rec: 02/11/19 18:19 [facility] [id number]) Shoulder Goniometric Range of Motion Shoulder Right Active Testing Position Supine Flexion 150 External Rotation at 90 degrees 35 Abduction Elbow/Forearm Range of Motion Elbow/Forearm Right Passive ROM Testing Position Supine Elbow Flexion (degrees) 95 Elbow Extension (degrees) 38 Pronation (degrees) 30 Supination (degrees) 15 Wrist Goniometric Range of Motion Wrist Right Flexion Active (degrees) 50 Extension Active (degrees) 20 PT-OP-M Strength Start: 02/10/19 09:22 Freq: Status: Active Protocol: Document 02/06/19 11:25 [facility] (Rec: 02/10/19 09:51 [facility] [email or web address]) Shoulder Strength Shoulder Manual Muscle Testing Right Flexion 2+ Poor+ Abduction (C5) 2+ Poor+ External Rotation 2+ Poor+ Elbow/Forearm Strength Elbow and Forearm Manual Muscle Testing Right Flexion (C6) 2 Poor Extension (C7) 2 Poor Pronation 2 Poor Supination 2 Poor Wrist Strength Wrist Manual Muscle Testing Right Flexion (C7) 2- Poor- Extension (C6) 2- Poor- Ulnar Deviation 2- Poor- Radial Deviation 2- Poor- PT-OP-Q Treatments Start: 02/10/19 09:22 Freq: Status: Active Protocol: Document 04/30/19 13:51 [facility] (Rec: 04/30/19 13:59 [facility] [id number]) Cardio Equipment Upper Body Ergometer (UBE) Duration (Minutes) 5 RPM 120 Seat Position 12 Height 4 Other half fwd/back Therapeutic Exercises Supine Exercises 3 Supine Exercise Name 1/2 foam roll stretch Sidelying Exercises 2 Sidelying Exercise Name sidelying shoulder ER Reps/Minutes 3 x 10 reps 1 # Standing Exercises 7 Standing Exercise Name standing rows, shoulder extension, shoulder flexion and triceps ext Equipment Used level 1 Reps/Minutes 2 x 10 reps Comments with theraband Manual Therapy Treatment Soft Tissue Mobilization 1 Body Location right biceps, brachialis, brachioradialis,wrist flexors Mobilization Type Myofascial Release,Strumming Intensity/Depth Superficial Body Position Standing Joint Mobilizations 1 Joint right wrist mobilizations for extension, flexion, RD, UD Comments Instruction in self application (forearm at side) GH Joint R Direction inf & distraction Grade II Manual Techniques 2 Type manual stretching for elbow flexion/extension 1 Type wrist distraction with ROM PT-OP-R Modalities Start: 02/10/19 09:22 Freq: Status: Active Protocol: Document 03/20/19 09:52 [facility] (Rec: 03/20/19 12:06 [facility] [id number]) Hot Pack/Cold Pack Treatment cold Location r elbow & shoulder Patient Position Supine Treatment Duration (minutes) 10 Patient Tolerance Good PT-OP-T Assessment and Plan Start: 02/10/19 09:22 Freq: Status: Active Protocol: Document 04/30/19 13:51 [facility] (Rec: 04/30/19 13:59 [facility] [email or web address]) Physical Therapy Assessment Assessment Summary Assessment Emphasized shoulder ER rotator cuff strengthening to help with shoulder stabilization for home. Leeanne continues to make progress and had the best amount of elbow extension today that I have seen. Physical Therapy Plan Frequency and Duration Frequency of Treatment 2x/Week Duration of Treatment 8 Plan of Care Start Date 03/18/19 Plan of Care End Date 05/20/19 Therapeutic Interventions Therapeutic Interventions Manual Therapy,Patient/ Caregiver Education,Self-Care/ Home Management,Soft Tissue Mobilization,Therapeutic Exercises Next Visit Focus/Plan Next Note Type Treatment Note Next Visit Plan rotator cuff strengtheing and scapular mobilizations, continue with ROM and manual stretches for the elbow and wrist
--- NOTE | 2019-05-13 17:51 | PT.OTN ---
Current Diagnoses Pain in right elbow (05/13/19) Nondisplaced fracture of head of right radius, initial encounter for closed fracture (05/13/19) Physical Therapy Treatment Note PT-OP-A Visit Information Start: 02/10/19 09:22 Freq: Status: Active Protocol: Document 05/13/19 17:41 [facility] (Rec: 05/13/19 17:51 [facility] [email or web address]) Out-Patient Physical Therapy Visit Information Visit Information Visit Type Treatment Note Visit Start Time 11:15 Visit Stop Time 12:00 Total Visit Minutes 45 Visit Number 16 PT-OP-B Current Condition Start: 02/10/19 09:22 Freq: Status: Active Protocol: Document 02/06/19 11:25 [facility] (Rec: 02/10/19 09:51 [facility] [email or web address]) Current Condition History of Current Condition Onset Date 12/23/18 Current Complaints right sided elbow stiffness and lack of ROM or functional use History of Current Condition Leeanne is a 63 year old female who fell on 12/23/18. X-ray report taken on 12/24/18 revealed a nondisplaced fracture of the right radial head. There was also a large amount of elbow effusion present. Leeanne was placed in a sling and she wore this until she saw Dr. Pacheco on 02/03 who had her discontinue use of the sling and only wear it when she is in crowds. She was presribed PT at this time. Her current complaints include severly limited elbow ROM, swelling, difficulty moving her fingers, inablilty to hold items in her right hand, pain with any twisting and unable to perform. Treatment Goals Patient/Caregiver Goals Leeanne would like a full recovery of her elbow with full ROM and strength Prior Functional Status Baseline Function- ADL's Modified Independent Baseline Function- Mobility Modified Independent Current Functional Impairments (Reported) Functional Limitations- ADL's limited with anything that requires use of her right hand or arm Functional Limitations- Recreation/ unable to lift hay vikas and Hobbies has to modify for activities such as sweeping the barn, hasn't been able to go on hikes due to pain and limited elbow mobility PT-OP-C Subjective Start: 02/10/19 09:22 Freq: Status: Active Protocol: Document 05/13/19 17:41 [facility] (Rec: 05/13/19 17:51 [facility] [email or web address]) OP-PT Subjective Patient Comments Patient Comments Leeanne notes she is walking with 2 horses now instead of 1 . Has been swimming a few times and feels it is really good exercise but also can tell how tight she is on her left side PT-OP-F Manual Assessment Start: 02/10/19 09:22 Freq: Status: Active Protocol: Document 02/06/19 11:25 [facility] (Rec: 02/10/19 09:51 COUNTS INCLUDE 234 BEDS AT THE [facility] [email or web address]) Manual Assessments Soft Tissue Assessment Soft Tissue Mobility Assessment guarding and spasm of the right biceps, deltiod, upper trapezius, common extensor tendon, supinator muscle Joint Mobility Assessment Joint Mobility Assessment very limited R elbow and wrist ROM, guarded right shoulder ROM, Other Manual Assessments Other Manual Assessments swelling noted over the right wrist and fingers PT-OP-J Posture/Palpation/Skin Start: 02/10/19 09:22 Freq: Status: Active Protocol: Document 02/06/19 11:25 [facility] (Rec: 02/10/19 09:51 COUNTS INCLUDE 234 BEDS AT THE [facility] [email or web address]) Palpation Assessment Location Three Palpation Location right supinator muscle Palpation Findings Soft Tissue Tightness,Spasm, Muscle Guarding,Tenderness Two Palpation Location common extensor tendon R Palpation Findings Soft Tissue Tightness,Spasm, Muscle Guarding,Tenderness One Palpation Location right radial head Palpation Findings Tenderness PT-OP-K Range of Motion Start: 02/10/19 09:51 Freq: Status: Active Protocol: Document 02/06/19 11:15 [facility] (Rec: 02/11/19 18:19 COUNTS INCLUDE 234 BEDS AT THE [facility] [id number]) Shoulder Goniometric Range of Motion Shoulder Right Active Testing Position Supine Flexion 150 External Rotation at 90 degrees 35 Abduction Elbow/Forearm Range of Motion Elbow/Forearm Right Passive ROM Testing Position Supine Elbow Flexion (degrees) 95 Elbow Extension (degrees) 38 Pronation (degrees) 30 Supination (degrees) 15 Wrist Goniometric Range of Motion Wrist Right Flexion Active (degrees) 50 Extension Active (degrees) 20 PT-OP-M Strength Start: 02/10/19 09:22 Freq: Status: Active Protocol: Document 02/06/19 11:25 [facility] (Rec: 02/10/19 09:51 COUNTS INCLUDE 234 BEDS AT THE [facility] [email or web address]) Shoulder Strength Shoulder Manual Muscle Testing Right Flexion 2+ Poor+ Abduction (C5) 2+ Poor+ External Rotation 2+ Poor+ Elbow/Forearm Strength Elbow and Forearm Manual Muscle Testing Right Flexion (C6) 2 Poor Extension (C7) 2 Poor Pronation 2 Poor Supination 2 Poor Wrist Strength Wrist Manual Muscle Testing Right Flexion (C7) 2- Poor- Extension (C6) 2- Poor- Ulnar Deviation 2- Poor- Radial Deviation 2- Poor- PT-OP-Q Treatments Start: 02/10/19 09:22 Freq: Status: Active Protocol: Document 05/13/19 17:41 COUNTS INCLUDE 234 BEDS AT THE [facility] (Rec: 05/13/19 17:51 COUNTS INCLUDE 234 BEDS AT THE [facility] [email or web address]) Cardio Equipment Upper Body Ergometer (UBE) Duration (Minutes) 5 RPM 120 Seat Position 12 Height 4 Other half fwd/back Therapeutic Exercises Sidelying Exercises 2 Sidelying Exercise Name sidelying shoulder ER Reps/Minutes 3 x 10 reps 2 # Sitting Exercises pully Sitting Exercise Name flex & abd Side right Reps/Minutes 2x 15 ea Comments cued relax R shld as arm goes up Standing Exercises 6 Standing Exercise Name standing bicep curls Reps/Minutes 4# 3 x 10 reps 1 Standing Exercise Name standing wall push ups Reps/Minutes x 10 Manual Therapy Treatment Soft Tissue Mobilization 1 Body Location right biceps, brachialis, brachioradialis,wrist flexors Mobilization Type Myofascial Release,Strumming Intensity/Depth Superficial Body Position Standing Joint Mobilizations 1 Joint right wrist mobilizations for extension, flexion, RD, UD Comments Instruction in self application (forearm at side) GH Joint R Direction inf & distraction Grade II PT-OP-R Modalities Start: 02/10/19 09:22 Freq: Status: Active Protocol: Document 03/20/19 09:52 [facility] (Rec: 03/20/19 12:06 [facility] [id number]) Hot Pack/Cold Pack Treatment cold Location r elbow & shoulder Patient Position Supine Treatment Duration (minutes) 10 Patient Tolerance Good PT-OP-T Assessment and Plan Start: 02/10/19 09:22 Freq: Status: Active Protocol: Document 05/13/19 17:41 COUNTS INCLUDE 234 BEDS AT THE [facility] (Rec: 05/13/19 17:51 COUNTS INCLUDE 234 BEDS AT THE [facility] [email or web address]) Physical Therapy Assessment Assessment Summary Assessment review of rotator cuff strengthening and pt is able to increase resistance. She also was able to increase resistance for bicep curls. Continues to show improvements Physical Therapy Plan Frequency and Duration Frequency of Treatment 2x/Week Duration of Treatment 8 Plan of Care Start Date 03/18/19 Plan of Care End Date 05/20/19 Therapeutic Interventions Therapeutic Interventions Manual Therapy,Patient/ Caregiver Education,Self-Care/ Home Management,Soft Tissue Mobilization,Therapeutic Exercises Next Visit Focus/Plan Next Note Type Progress Note Next Visit Plan rotator cuff strengthening and scapular mobilizations, continue with ROM and manual stretches for the elbow and wrist
--- NOTE | 2019-06-04 12:32 | PT.OTN ---
Current Diagnoses Pain in right elbow (06/04/19) Nondisplaced fracture of head of right radius, initial encounter for closed fracture (06/04/19) Physical Therapy Treatment Note PT-OP-A Visit Information Start: 02/10/19 09:22 Freq: Status: Active Protocol: Document 06/04/19 12:13 [facility] (Rec: 06/04/19 12:32 [facility] [email or web address]) Out-Patient Physical Therapy Visit Information Visit Information Visit Type Progress Note Visit Start Time 11:15 Visit Stop Time 12:00 Total Visit Minutes 45 Visit Number 17 PT-OP-B Current Condition Start: 02/10/19 09:22 Freq: Status: Active Protocol: Document 02/06/19 11:25 [facility] (Rec: 02/10/19 09:51 [facility] [email or web address]) Current Condition History of Current Condition Onset Date 12/23/18 Current Complaints right sided elbow stiffness and lack of ROM or functional use History of Current Condition Leeanne is a 63 year old female who fell on 12/23/18. X-ray report taken on 12/24/18 revealed a nondisplaced fracture of the right radial head. There was also a large amount of elbow effusion present. Leeanne was placed in a sling and she wore this until she saw Dr. Pacheco on 02/03 who had her discontinue use of the sling and only wear it when she is in crowds. She was presribed PT at this time. Her current complaints include severly limited elbow ROM, swelling, difficulty moving her fingers, inablilty to hold items in her right hand, pain with any twisting and unable to perform. Treatment Goals Patient/Caregiver Goals Leeanne would like a full recovery of her elbow with full ROM and strength Prior Functional Status Baseline Function- ADL's Modified Independent Baseline Function- Mobility Modified Independent Current Functional Impairments (Reported) Functional Limitations- ADL's limited with anything that requires use of her right hand or arm Functional Limitations- Recreation/ unable to lift hay vikas and Hobbies has to modify for activities such as sweeping the barn, hasn't been able to go on hikes due to pain and limited elbow mobility PT-OP-C Subjective Start: 02/10/19 09:22 Freq: Status: Active Protocol: Document 06/04/19 12:13 [facility] (Rec: 06/04/19 12:32 [facility] [email or web address]) OP-PT Subjective Patient Comments Patient Comments Leeanne reports she has been swimming more and is using the weight room more now for the bike and light weights. She reports still lack of full ROM at end range elbow extension. PT-OP-F Manual Assessment Start: 02/10/19 09:22 Freq: Status: Active Protocol: Document 02/06/19 11:25 [facility] (Rec: 02/10/19 09:51 [facility] [email or web address]) Manual Assessments Soft Tissue Assessment Soft Tissue Mobility Assessment guarding and spasm of the right biceps, deltiod, upper trapezius, common extensor tendon, supinator muscle Joint Mobility Assessment Joint Mobility Assessment very limited R elbow and wrist ROM, guarded right shoulder ROM, Other Manual Assessments Other Manual Assessments swelling noted over the right wrist and fingers PT-OP-J Posture/Palpation/Skin Start: 02/10/19 09:22 Freq: Status: Active Protocol: Document 02/06/19 11:25 [facility] (Rec: 02/10/19 09:51 [facility] [email or web address]) Palpation Assessment Location Three Palpation Location right supinator muscle Palpation Findings Soft Tissue Tightness,Spasm, Muscle Guarding,Tenderness Two Palpation Location common extensor tendon R Palpation Findings Soft Tissue Tightness,Spasm, Muscle Guarding,Tenderness One Palpation Location right radial head Palpation Findings Tenderness PT-OP-K Range of Motion Start: 02/10/19 09:51 Freq: Status: Active Protocol: Document 02/06/19 11:15 [facility] (Rec: 02/11/19 18:19 [facility] [id number]) Shoulder Goniometric Range of Motion Shoulder Right Active Testing Position Supine Flexion 150 External Rotation at 90 degrees 35 Abduction Elbow/Forearm Range of Motion Elbow/Forearm Right Passive ROM Testing Position Supine Elbow Flexion (degrees) 95 Elbow Extension (degrees) 38 Pronation (degrees) 30 Supination (degrees) 15 Wrist Goniometric Range of Motion Wrist Right Flexion Active (degrees) 50 Extension Active (degrees) 20 PT-OP-M Strength Start: 02/10/19 09:22 Freq: Status: Active Protocol: Document 02/06/19 11:25 [facility] (Rec: 02/10/19 09:51 [facility] [email or web address]) Shoulder Strength Shoulder Manual Muscle Testing Right Flexion 2+ Poor+ Abduction (C5) 2+ Poor+ External Rotation 2+ Poor+ Elbow/Forearm Strength Elbow and Forearm Manual Muscle Testing Right Flexion (C6) 2 Poor Extension (C7) 2 Poor Pronation 2 Poor Supination 2 Poor Wrist Strength Wrist Manual Muscle Testing Right Flexion (C7) 2- Poor- Extension (C6) 2- Poor- Ulnar Deviation 2- Poor- Radial Deviation 2- Poor- PT-OP-Q Treatments Start: 02/10/19 09:22 Freq: Status: Active Protocol: Document 06/04/19 12:13 [facility] (Rec: 06/04/19 12:32 [facility] [email or web address]) Cardio Equipment Upper Body Ergometer (UBE) Duration (Minutes) 5 RPM 120 Seat Position 12 Height 4 Other half fwd/back Therapeutic Exercises Sidelying Exercises 2 Sidelying Exercise Name sidelying shoulder ER Reps/Minutes 3 x5 reps 3# weight Standing Exercises 6 Standing Exercise Name standing bicep curls Reps/Minutes 5# 3 x 10 reps doorway Standing Exercise Name standing door way biceps and chest stretch 2 Standing Exercise Name wall slides for both flexion and abduction Reps/Minutes x 10 reps each 1 Standing Exercise Name standing wall push ups Reps/Minutes x 10 Manual Therapy Treatment Soft Tissue Mobilization 2 Body Location right supinator musculature Body Position Supine Comments MFR over the right supinator and forearm 1 Body Location right biceps, brachialis, brachioradialis,wrist flexors Mobilization Type Myofascial Release,Strumming Intensity/Depth Superficial Body Position Standing Manual Techniques 2 Type manual stretching for elbow flexion/extension Comments into elbow extension and supination 1 Type wrist distraction with ROM PT-OP-R Modalities Start: 02/10/19 09:22 Freq: Status: Active Protocol: Document 03/20/19 09:52 [facility] (Rec: 03/20/19 12:06 [facility] [id number]) Hot Pack/Cold Pack Treatment cold Location r elbow & shoulder Patient Position Supine Treatment Duration (minutes) 10 Patient Tolerance Good PT-OP-T Assessment and Plan Start: 02/10/19 09:22 Freq: Status: Active Protocol: Document 06/04/19 12:13 [facility] (Rec: 06/04/19 12:32 [facility] [email or web address]) Physical Therapy Assessment Goals Five Impairment Poor strength of the R elbow, wrist, and shoulder due to pain/immobility Informatica Developer Goal (LTG) Improve strength of the right UE to WFL As of 06/04/19 strength of the right elbow continues to improve slowly. Functionally Leeanne has returned to modified swimming, she is able to lead 2 horses now instead of 1, we have increased resistance with bicep curls to 5# with good tolerance. She is progressing with strengthening slowly but is progressing LTG Duration 8 weeks Four Impairment R sided elbow pain rated 5/10 and decreased functional use of the R elbow Informatica Developer Goal (LTG) Leeanne has a reduction in pain to 1-2/10 and is able to return to normal functional activities such a twisting and gripping. Pain levels are continueing to lessen and Leeanne notes she is tolerating more activity with less pain. LTG Duration 8 weeks + Three Impairment Painful and stiff right shoulder Assisted Goal (LTG) Decrease muscle guarding and pain and improve full pain free R shoulder ROM Good progress flexion and abduction 160 degrees now LTG Duration 8 weeks Two Impairment Painful and limited ROM of the R wrist Short Term Goal (STG) Improve wrist ROM from 20 degrees extension and 50 degrees flexion to WNL of 70 degress wrist extension and 75 degrees wrist flexion STG Duration 4-6 weeks Assisted Goal (LTG) GOOD progress wrist extension 45 degrees, flexion 60 degress now One Impairment decreased R elbow ROM Flexion 95, ext 38, pronation 30, supination 15 Short Term Goal (STG) Leeanne shows a increase in elbow ROM by 10 degrees for elbow flexion, extension, pronation and supination STG Duration 4-6 weeks Informatica Developer Goal (LTG) Leeanne is able to gain full ROM back of her right elbow GOOD PROGRESS elbow flexion 125, extension 15, supination 25, pronation 30 LTG Duration 8 weeks + Progress Towards Goals Progress Towards Goals Progressing Toward Goals Progress Comments Leeanne is progressing slowly towards her goals. She has decreased her PT visits and is working a great deal on her own with swimming and stretching. Functionally she feels as if she is using her arm more now however she does not yet have full ROM of the elbow, wrist, and shoulder. Strength is slowing progressing as well. Leeanne would benefit from continue PT to work towards a goal of full ROM and strength. Assessment Summary Assessment As above Leeanne continues to make progress but has not yet met all of her established goals. Today I addressed MFR restrictions in the supinator and biceps musculature. She is still tight and restrictive in those areas. We reviewed stretches for the biceps and supinator today. Overall improved ROM and able to increase strength to 5# today for biceps curls. She would benefit from continued PT Physical Therapy Plan Frequency and Duration Frequency of Treatment 2x/Week Duration of Treatment 8 Plan of Care Start Date 06/04/19 Plan of Care End Date 08/06/19 Therapeutic Interventions Therapeutic Interventions Manual Therapy,Patient/ Caregiver Education,Self-Care/ Home Management,Soft Tissue Mobilization,Therapeutic Exercises Next Visit Focus/Plan Next Note Type Treatment Note Next Visit Plan Continue with progressing shoulder, elbow and wrist ROM and stability. Focus on rotator cuff strengthening for the shoulder and full elbow extension without pain in the medial elbow.
--- NOTE | 2019-06-04 12:33 | PT.OPPOC ---
Physical, Occupational & Speech Therapy At [facility] Current Diagnoses Pain in right elbow (06/04/19) Nondisplaced fracture of head of right radius, initial encounter for closed fracture (06/04/19) Visit Care Team Role Provider Type Dawson Pollock MD Primary Care Provider Physician Specialty: Family Practice Address: [address] [place] [address], [id number] Email: [email or web address] Providers Specialty: Address: Phone: Fax: Email: Arsen Pacheco MD Attending Provider Non-Staff Specialty: Orthopedic Surgery Address: [address] [place] [address], [address], [place], [address] Email: Plan Of Care PT-OP-T Assessment and Plan Start: 02/10/19 09:22 Freq: Status: Active Protocol: Document 06/04/19 12:13 [facility] (Rec: 06/04/19 12:32 [facility] [id number]) Physical Therapy Assessment Goals Five Impairment Poor strength of the R elbow, wrist, and shoulder due to pain/immobility Assisted Goal (LTG) Improve strength of the right UE to WFL As of 06/04/19 strength of the right elbow continues to improve slowly. Functionally Leeanne has returned to modified swimming, she is able to lead 2 horses now instead of 1, we have increased resistance with bicep curls to 5# with good tolerance. She is progressing with strengthening slowly but is progressing LTG Duration 8 weeks Four Impairment R sided elbow pain rated 5/10 and decreased functional use of the R elbow Business Services Director Goal (LTG) Leeanne has a reduction in pain to 1-2/10 and is able to return to normal functional activities such a twisting and gripping. Pain levels are continuing to lessen and Leeanne notes she is tolerating more activity with less pain. LTG Duration 8 weeks + Three Impairment Painful and stiff right shoulder Assisted Goal (LTG) Decrease muscle guarding and pain and improve full pain free R shoulder ROM Good progress flexion and abduction 160 degrees now LTG Duration 8 weeks Two Impairment Painful and limited ROM of the R wrist Short Term Goal (STG) Improve wrist ROM from 20 degrees extension and 50 degrees flexion to WNL of 70 degrees wrist extension and 75 degrees wrist flexion STG Duration 4-6 weeks Assisted Goal (LTG) GOOD progress wrist extension 45 degrees, flexion 60 degrees now One Impairment decreased R elbow ROM Flexion 95, ext 38, pronation 30, supination 15 Short Term Goal (STG) Leeanne shows a increase in elbow ROM by 10 degrees for elbow flexion, extension, pronation and supination STG Duration 4-6 weeks Business Services Director Goal (LTG) Leeanne is able to gain full ROM back of her right elbow GOOD PROGRESS elbow flexion 125, extension 15, supination 25, pronation 30 LTG Duration 8 weeks + Progress Towards Goals Progress Towards Goals Progressing Toward Goals Progress Comments Leeanne is progressing slowly towards her goals. She has decreased her PT visits and is working a great deal on her own with swimming and stretching. Functionally she feels as if she is using her arm more now however she does not yet have full ROM of the elbow, wrist, and shoulder. Strength is slowing progressing as well. Leeanne would benefit from continue PT to work towards a goal of full ROM and strength. Assessment Summary Assessment As above Leeanne continues to make progress but has not yet met all of her established goals. Today I addressed MFR restrictions in the supinator and biceps musculature. She is still tight and restrictive in those areas. We reviewed stretches for the biceps and supinator today. Overall improved ROM and able to increase strength to 5# today for biceps curls. She would benefit from continued PT Physical Therapy Plan Frequency and Duration Frequency of Treatment 2x/Week Duration of Treatment 8 Plan of Care Start Date 06/04/19 Plan of Care End Date 08/06/19 Therapeutic Interventions Therapeutic Interventions Manual Therapy,Patient/ Caregiver Education,Self-Care/ Home Management,Soft Tissue Mobilization,Therapeutic Exercises Next Visit Focus/Plan Next Note Type Treatment Note Next Visit Plan Continue with progressing shoulder, elbow and wrist ROM and stability. Focus on rotator cuff strengthening for the shoulder and full elbow extension without pain in the medial elbow. Plan of Care Dates Plan of Care Start Date 06/04/19 Plan of Care End Date 08/06/19 Electronically Signed by: Hemalatha Scott, PT 06/04/19 [id number] Please Sign and Return: I have reviewed this Plan of Care and certify that the skilled therapy services above are required to meet the patient?s needs. Physician Signature Date Printed Name and Credentials Clinical Instructor Signature Printed Name and Credentials
--- NOTE | 2019-06-12 14:24 | PT.OTN ---
Current Diagnoses Pain in right elbow (06/11/19) Nondisplaced fracture of head of right radius, initial encounter for closed fracture (06/11/19) Physical Therapy Treatment Note PT-OP-A Visit Information Start: 02/10/19 09:22 Freq: Status: Active Protocol: Document 06/11/19 11:15 [facility] (Rec: 06/12/19 14:24 [facility] [email or web address]) Out-Patient Physical Therapy Visit Information Visit Information Visit Type Treatment Note Visit Start Time 11:15 Visit Stop Time 12:00 Total Visit Minutes 45 Visit Number 18 PT-OP-B Current Condition Start: 02/10/19 09:22 Freq: Status: Active Protocol: Document 02/06/19 11:25 [facility] (Rec: 02/10/19 09:51 [facility] [email or web address]) Current Condition History of Current Condition Onset Date 12/23/18 Current Complaints right sided elbow stiffness and lack of ROM or functional use History of Current Condition Leeanne is a 63 year old female who fell on 12/23/18. X-ray report taken on 12/24/18 revealed a nondisplaced fracture of the right radial head. There was also a large amount of elbow effusion present. Leeanne was placed in a sling and she wore this until she saw Dr. Pacheco on 02/03 who had her discontinue use of the sling and only wear it when she is in crowds. She was presribed PT at this time. Her current complaints include severly limited elbow ROM, swelling, difficulty moving her fingers, inablilty to hold items in her right hand, pain with any twisting and unable to perform. Treatment Goals Patient/Caregiver Goals Leeanne would like a full recovery of her elbow with full ROM and strength Prior Functional Status Baseline Function- ADL's Modified Independent Baseline Function- Mobility Modified Independent Current Functional Impairments (Reported) Functional Limitations- ADL's limited with anything that requires use of her right hand or arm Functional Limitations- Recreation/ unable to lift hay vikas and Hobbies has to modify for activities such as sweeping the barn, hasn't been able to go on hikes due to pain and limited elbow mobility PT-OP-C Subjective Start: 02/10/19 09:22 Freq: Status: Active Protocol: Document 06/11/19 11:15 [facility] (Rec: 06/12/19 14:24 [facility] [email or web address]) OP-PT Subjective Patient Comments Patient Comments Leeanne states she got back on her horse to ride. She was happy about that. She has been swimming more and feeling more fluid with that. Still limited at end range elbow extension and shoulder flexion PT-OP-F Manual Assessment Start: 02/10/19 09:22 Freq: Status: Active Protocol: Document 02/06/19 11:25 [facility] (Rec: 02/10/19 09:51 [facility] [email or web address]) Manual Assessments Soft Tissue Assessment Soft Tissue Mobility Assessment guarding and spasm of the right biceps, deltiod, upper trapezius, common extensor tendon, supinator muscle Joint Mobility Assessment Joint Mobility Assessment very limited R elbow and wrist ROM, guarded right shoulder ROM, Other Manual Assessments Other Manual Assessments swelling noted over the right wrist and fingers PT-OP-J Posture/Palpation/Skin Start: 02/10/19 09:22 Freq: Status: Active Protocol: Document 02/06/19 11:25 [facility] (Rec: 02/10/19 09:51 [facility] [email or web address]) Palpation Assessment Location Three Palpation Location right supinator muscle Palpation Findings Soft Tissue Tightness,Spasm, Muscle Guarding,Tenderness Two Palpation Location common extensor tendon R Palpation Findings Soft Tissue Tightness,Spasm, Muscle Guarding,Tenderness One Palpation Location right radial head Palpation Findings Tenderness PT-OP-K Range of Motion Start: 02/10/19 09:51 Freq: Status: Active Protocol: Document 02/06/19 11:15 [facility] (Rec: 02/11/19 18:19 [facility] [id number]) Shoulder Goniometric Range of Motion Shoulder Right Active Testing Position Supine Flexion 150 External Rotation at 90 degrees 35 Abduction Elbow/Forearm Range of Motion Elbow/Forearm Right Passive ROM Testing Position Supine Elbow Flexion (degrees) 95 Elbow Extension (degrees) 38 Pronation (degrees) 30 Supination (degrees) 15 Wrist Goniometric Range of Motion Wrist Right Flexion Active (degrees) 50 Extension Active (degrees) 20 PT-OP-M Strength Start: 02/10/19 09:22 Freq: Status: Active Protocol: Document 02/06/19 11:25 [facility] (Rec: 02/10/19 09:51 [facility] [email or web address]) Shoulder Strength Shoulder Manual Muscle Testing Right Flexion 2+ Poor+ Abduction (C5) 2+ Poor+ External Rotation 2+ Poor+ Elbow/Forearm Strength Elbow and Forearm Manual Muscle Testing Right Flexion (C6) 2 Poor Extension (C7) 2 Poor Pronation 2 Poor Supination 2 Poor Wrist Strength Wrist Manual Muscle Testing Right Flexion (C7) 2- Poor- Extension (C6) 2- Poor- Ulnar Deviation 2- Poor- Radial Deviation 2- Poor- PT-OP-Q Treatments Start: 02/10/19 09:22 Freq: Status: Active Protocol: Document 06/11/19 11:15 [facility] (Rec: 06/12/19 14:24 [facility] [email or web address]) Cardio Equipment Upper Body Ergometer (UBE) Duration (Minutes) 5 RPM 120 Seat Position 12 Height 4 Other half fwd/back Therapeutic Exercises Supine Exercises 1 Supine Exercise Name foam roll stretch Comments with shoulder abduction Sidelying Exercises 2 Sidelying Exercise Name sidelying shoulder ER Reps/Minutes 3 x5 reps 3# weight Standing Exercises 1 Standing Exercise Name standing wall push ups Reps/Minutes x 10 Manual Therapy Treatment Soft Tissue Mobilization 2 Body Location right supinator musculature Body Position Supine Comments MFR over the right supinator and forearm 1 Body Location right biceps, brachialis, brachioradialis,wrist flexors Mobilization Type Myofascial Release,Strumming Intensity/Depth Superficial Body Position Standing Joint Mobilizations 1 Joint right wrist mobilizations for extension, flexion, RD, UD Comments Instruction in self application (forearm at side) Manual Techniques 2 Type manual stretching for elbow flexion/extension Comments into elbow extension and supination PT-OP-R Modalities Start: 02/10/19 09:22 Freq: Status: Active Protocol: Document 03/20/19 09:52 [facility] (Rec: 03/20/19 12:06 [facility] [id number]) Hot Pack/Cold Pack Treatment cold Location r elbow & shoulder Patient Position Supine Treatment Duration (minutes) 10 Patient Tolerance Good PT-OP-T Assessment and Plan Start: 02/10/19 09:22 Freq: Status: Active Protocol: Document 06/11/19 11:15 [facility] (Rec: 06/12/19 14:24 [facility] [email or web address]) Physical Therapy Assessment Assessment Summary Assessment good progress with elbow ROM, lacking 5 degrees now for elbow extension. Leeanne is moving her arm more and more and going back to ADL's. There is still pain with end range stretching. Shoulder ER still limited with both ROM and strength Physical Therapy Plan Frequency and Duration Frequency of Treatment 2x/Week Duration of Treatment 8 Plan of Care Start Date 06/04/19 Plan of Care End Date 08/06/19 Next Visit Focus/Plan Next Note Type Treatment Note Next Visit Plan This will be her last scheduled visit, review all established exercises and manual therapy techniques working towards full ROM
--- NOTE | 2019-06-18 13:58 | PT.OTN ---
Current Diagnoses Pain in right elbow (06/18/19) Nondisplaced fracture of head of right radius, initial encounter for closed fracture (06/18/19) Physical Therapy Treatment Note PT-OP-A Visit Information Start: 02/10/19 09:22 Freq: Status: Active Protocol: Document 06/18/19 12:01 [facility] (Rec: 06/18/19 12:09 [facility] [id number]) Out-Patient Physical Therapy Visit Information Visit Information Visit Type Treatment Note Visit Start Time 12:05 Visit Stop Time 12:50 Total Visit Minutes 45 Visit Number 19 PT-OP-B Current Condition Start: 02/10/19 09:22 Freq: Status: Active Protocol: Document 02/06/19 11:25 [facility] (Rec: 02/10/19 09:51 [facility] [email or web address]) Current Condition History of Current Condition Onset Date 12/23/18 Current Complaints right sided elbow stiffness and lack of ROM or functional use History of Current Condition Leeanne is a 63 year old female who fell on 12/23/18. X-ray report taken on 12/24/18 revealed a nondisplaced fracture of the right radial head. There was also a large amount of elbow effusion present. Leeanne was placed in a sling and she wore this until she saw Dr. Pacheco on 02/03 who had her discontinue use of the sling and only wear it when she is in crowds. She was presribed PT at this time. Her current complaints include severly limited elbow ROM, swelling, difficulty moving her fingers, inablilty to hold items in her right hand, pain with any twisting and unable to perform. Treatment Goals Patient/Caregiver Goals Leeanne would like a full recovery of her elbow with full ROM and strength Prior Functional Status Baseline Function- ADL's Modified Independent Baseline Function- Mobility Modified Independent Current Functional Impairments (Reported) Functional Limitations- ADL's limited with anything that requires use of her right hand or arm Functional Limitations- Recreation/ unable to lift hay vikas and Hobbies has to modify for activities such as sweeping the barn, hasn't been able to go on hikes due to pain and limited elbow mobility PT-OP-C Subjective Start: 02/10/19 09:22 Freq: Status: Active Protocol: Document 06/18/19 12:01 [facility] (Rec: 06/18/19 12:09 [facility] [id number]) OP-PT Subjective Patient Comments Patient Comments felt more range and flexibility today with swimming and could go in the deep end and do laps. Overall she feels she is doing much better and will keep working on her end range of motion Patient Reported Progress Improving PT-OP-F Manual Assessment Start: 02/10/19 09:22 Freq: Status: Active Protocol: Document 02/06/19 11:25 [facility] (Rec: 02/10/19 09:51 [facility] [email or web address]) Manual Assessments Soft Tissue Assessment Soft Tissue Mobility Assessment guarding and spasm of the right biceps, deltiod, upper trapezius, common extensor tendon, supinator muscle Joint Mobility Assessment Joint Mobility Assessment very limited R elbow and wrist ROM, guarded right shoulder ROM, Other Manual Assessments Other Manual Assessments swelling noted over the right wrist and fingers PT-OP-J Posture/Palpation/Skin Start: 02/10/19 09:22 Freq: Status: Active Protocol: Document 02/06/19 11:25 [facility] (Rec: 02/10/19 09:51 [facility] [email or web address]) Palpation Assessment Location Three Palpation Location right supinator muscle Palpation Findings Soft Tissue Tightness,Spasm, Muscle Guarding,Tenderness Two Palpation Location common extensor tendon R Palpation Findings Soft Tissue Tightness,Spasm, Muscle Guarding,Tenderness One Palpation Location right radial head Palpation Findings Tenderness PT-OP-K Range of Motion Start: 02/10/19 09:51 Freq: Status: Active Protocol: Document 06/18/19 13:42 [facility] (Rec: 06/18/19 13:58 [facility] [email or web address]) Shoulder Goniometric Range of Motion Shoulder Right Active Testing Position Supine Flexion 165 External Rotation at 90 degrees 45 Abduction External Rotation at 45 degrees 65 Abduction Elbow/Forearm Range of Motion Elbow/Forearm Right Passive ROM Testing Position Supine Elbow Flexion (degrees) 130 Elbow Extension (degrees) 5 Pronation (degrees) 65 Supination (degrees) 55 Wrist Goniometric Range of Motion Wrist Right Flexion Active (degrees) 70 Extension Active (degrees) 75 PT-OP-M Strength Start: 02/10/19 09:22 Freq: Status: Active Protocol: Document 02/06/19 11:25 [facility] (Rec: 02/10/19 09:51 [facility] [email or web address]) Shoulder Strength Shoulder Manual Muscle Testing Right Flexion 2+ Poor+ Abduction (C5) 2+ Poor+ External Rotation 2+ Poor+ Elbow/Forearm Strength Elbow and Forearm Manual Muscle Testing Right Flexion (C6) 2 Poor Extension (C7) 2 Poor Pronation 2 Poor Supination 2 Poor Wrist Strength Wrist Manual Muscle Testing Right Flexion (C7) 2- Poor- Extension (C6) 2- Poor- Ulnar Deviation 2- Poor- Radial Deviation 2- Poor- PT-OP-Q Treatments Start: 02/10/19 09:22 Freq: Status: Active Protocol: Document 06/18/19 13:42 [facility] (Rec: 06/18/19 13:58 [facility] [email or web address]) Cardio Equipment Upper Body Ergometer (UBE) Duration (Minutes) 5 RPM 120 Seat Position 12 Height 4 Other half fwd/back Therapeutic Exercises Other Exercises 2 Other Exercise Name weight shifts in quadruped 1 Other Exercise Name hands and knees rock backs Comments with shoulder gentle posterior glides Manual Therapy Treatment Soft Tissue Mobilization 2 Body Location right supinator musculature Body Position Supine Comments MFR over the right supinator and forearm 1 Body Location right biceps, brachialis, brachioradialis,wrist flexors Mobilization Type Myofascial Release,Strumming Intensity/Depth Superficial Body Position Standing Joint Mobilizations 1 Joint right wrist mobilizations for extension, flexion, RD, UD Comments Instruction in self application (forearm at side) GH Joint R Direction inf & distraction Grade II Manual Techniques 2 Type manual stretching for elbow flexion/extension Comments into elbow extension and supination PT-OP-R Modalities Start: 02/10/19 09:22 Freq: Status: Active Protocol: Document 03/20/19 09:52 [facility] (Rec: 03/20/19 12:06 [facility] [id number]) Hot Pack/Cold Pack Treatment cold Location r elbow & shoulder Patient Position Supine Treatment Duration (minutes) 10 Patient Tolerance Good PT-OP-T Assessment and Plan Start: 02/10/19 09:22 Freq: Status: Active Protocol: Document 06/18/19 13:42 [facility] (Rec: 06/18/19 13:58 [facility] [id number]) Physical Therapy Assessment Goals Five Impairment Poor strength of the R elbow, wrist, and shoulder due to pain/immobility Hospital Fellow Goal (LTG) Improve strength of the right UE to WFL As of 06/18/19 Leeanne continues to show improved strength of the right elbow. She is able to use 5# weights for bicep curls now and has been able to swim laps in the pool now. Leeanne has also been able to ride her horse now and is feeling more confident with her strength overall. Modified pushups on knees is still really difficult for her . She will continue to work on her HEP Four Impairment R sided elbow pain rated 5/10 and decreased functional use of the R elbow Intermediate Goal (LTG) Leeanne has a reduction in pain to 1-2/10 and is able to return to normal functional activities such a twisting and gripping. Pain levels continue to decrease and for the most part Leeanne's pain is a 1-2/10. There are times when she puts more pressure through her arm and it does increase in pain temporarily Three Impairment Painful and stiff right shoulder Hospital Fellow Goal (LTG) Decrease muscle guarding and pain and improve full pain free R shoulder ROM Excellent progress with shoulder ROM, limited in end range shoulder flexion and abduction only now and this is improving with swimming LTG Duration 8 weeks Two Impairment Painful and limited ROM of the R wrist Short Term Goal (STG) Improve wrist ROM from 20 degrees extension and 50 degrees flexion to WNL of 70 degrees wrist extension and 75 degrees wrist flexion STG Duration GOAL MET One Impairment decreased R elbow ROM Flexion 95, ext 38, pronation 30, supination 15 Intermediate Goal (LTG) Leeanne is able to gain full ROM back of her right elbow Excellent progress elbow flexion is 130 extension is 5 degrees Assessment Summary Assessment Leeanne has made great progress in these last few weeks with both her ROM and strength. She started swimming at the pool along with her exercises which has really helped. This is Leeanne's last visit in PT and she will continue to work on her HEP and the pool to continue working on strengthening Physical Therapy Plan Discharge Physical Therapy Discharge Reasons Goals Met Discharge Comments DC to Ind HEP
== END 2019-06-19 08:03 ==
LOC: PHYS 12:00
PROVIDERS: PCP Family Medicine; Visit Provider Orthopaedic Surgery Hand Surgery
DX: M25.521 Pain in right elbow (principal); S52.124A Nondisplaced fracture of head of right radius, initial encounter for closed fracture
CPT/HCPCS: 97110; 97140; 97161

== ENCOUNTER → 2021-04-04 08:08 | Outpatient (CLI) | payer OTHER, SELFPAY ==
[2021-04-04 09:20] LABS: Hemoglobin A1C% w Est Avg Glu 5.6 % (4.0-6.0)
[2021-04-04 09:42] LABS: Alanine Aminotransferase 34 IU/L (<35); Albumin 4.4 g/dL (3.5-5.0); Albumin Globulin Ratio 1.7 (1.0-2.8); Alkaline Phosphatase 67 U/L (38-126); Aspartate Aminotransferase 30 IU/L (14-36); BUN Creatinine Ratio 10.1 (6-22); Bilirubin Total 0.4 mg/dL (0.2-1.3); Blood Urea Nitrogen 8 mg/dL (7-17); Carbon Dioxide 27 mmol/L (22-32); Chloride 103 mmol/L (98-107); Cholesterol 239 mg/dL (140-199); Estimated Glomerular Filt Rate > 60.0 mL/min (>60); Globulin 2.6 g/dL (1.7-4.1); Glucose 97 mg/dL (80-110); HDL Cholesterol 77 mg/dL (40-60); HEMOLYSIS < 15 (0-50); LDL Cholesterol Calculated 143 mg/dL (<100); Potassium 4.6 mmol/L (3.4-5.1); Sodium 139 mmol/L (137-145); Triglycerides 93 mg/dL (35-150)
== END ==
PROVIDERS: PCP Family Medicine; Referring Provider Family Medicine; Visit Provider Family Medicine
DX: E78.5 Hyperlipidemia, unspecified (principal)
CPT/HCPCS: 36415; 80053; 80061; 83036

== ENCOUNTER → 2022-01-30 16:53 | Outpatient (CLI) | payer OTHER, SELFPAY ==
[2022-01-30 18:28] LABS: COVID19 -Nasal RAPID Negative (Negative)
== END ==
PROVIDERS: PCP Family Medicine; Visit Provider Student in an Organized Health Care Education/Training Program
DX: Z20.822 Contact with and (suspected) exposure to COVID-19 (principal); J02.9 Acute pharyngitis, unspecified
CPT/HCPCS: 87070; 87635

== ENCOUNTER → 2023-02-02 14:27 | Outpatient (CLI) | payer MEDICARE, SELFPAY ==
[2023-02-03 12:12] LABS: Occult Blood 1 Positive (Negative)
[2023-02-03 12:13] LABS: Occult Blood 2 Negative (Negative); Occult Blood 3 Negative (Negative)
== END ==
PROVIDERS: PCP Family Medicine; Visit Provider Family Medicine
DX: K52.9 Noninfective gastroenteritis and colitis, unspecified (principal)
CPT/HCPCS: 82270; 87045; 87899

== ENCOUNTER → 2023-02-09 11:11 | Outpatient (CLI) | payer MEDICARE, SELFPAY ==
[2023-02-09 14:46] LABS: Clostridium Difficile Tox PCR Negative for C. diff (Negative)
== END ==
PROVIDERS: PCP Family Medicine; Referring Provider Family Medicine; Visit Provider Family Medicine
DX: K92.1 Melena (principal)
CPT/HCPCS: 87177; 87493

== ENCOUNTER → 2023-03-01 08:00 | Outpatient (CLI) | payer MEDICARE, SELFPAY ==
[2023-03-01 08:24] LABS: Add Manual Diff / Slide Review NO; Basophils Absolute Auto 0 /uL (0-100); Basophils Percent Auto 0.8 % (0-2); Eosinophils Absolute Auto 200 /uL (0-450); Eosinophils Percent Auto 2.6 % (2-4); Hematocrit 41.2 % (36-46); Hemoglobin 13.8 g/dL (12.0-16.0); Lymphocytes Absolute Auto 2300 /uL (1100-4500); Lymphocytes Percent Auto 37.7 % (25-40); Mean Corpuscular HGB Conc 33.4 % (30-36); Mean Corpuscular Hemoglobin 30.1 PG (26-34); Mean Corpuscular Volume 90.1 fL (80-100); Monocytes Absolute Auto 500 /uL (0-900); Neutrophils Absolute Auto 3100 /uL (1500-7000); Neutrophils Percent Auto 50.9 % (50-75); Platelet Count 287 X10^3/uL (150-400); Red Blood Cell Count 4.58 X10^6/uL (4.0-5.2); White Blood Cell Count 6.1 X10^3/uL (4.5-11.0)
[2023-03-01 09:15] LABS: Alanine Aminotransferase 31 IU/L (<35); Albumin 4.3 g/dL (3.5-5.0); Albumin Globulin Ratio 1.5 (1.0-2.8); Alkaline Phosphatase 75 U/L (38-126); Aspartate Aminotransferase 32 IU/L (14-36); BUN Creatinine Ratio 13.6 (6-22); Bilirubin Total 0.4 mg/dL (0.2-1.3); Blood Urea Nitrogen 11 mg/dL (7-17); Calcium 9.7 mg/dL (8.4-10.2); Carbon Dioxide 29 mmol/L (22-32); Chloride 102 mmol/L (98-107); Cholesterol 254 mg/dL (140-199); Estimated Glomerular Filt Rate > 60 mL/min (>60); Globulin 2.9 g/dL (1.7-4.1); Glucose 98 mg/dL (80-110); HDL Cholesterol 67 mg/dL (40-60); HEMOLYSIS < 15 (0-50); LDL Cholesterol Calculated 163 mg/dL (<100); Potassium 4.5 mmol/L (3.4-5.1); Sodium 138 mmol/L (137-145); Total Protein 7.2 g/dL (6.3-8.2); Triglycerides 118 mg/dL (35-150)
== END ==
PROVIDERS: PCP Family Medicine; Referring Provider Family Medicine; Visit Provider Family Medicine
DX: K92.1 Melena (principal); E78.5 Hyperlipidemia, unspecified
CPT/HCPCS: 36415; 80053; 80061; 85025

== ENCOUNTER → 2023-06-27 14:58 | Outpatient (CLI) | payer MEDICARE, SELFPAY | PROVIDERS: PCP Family Medicine; Visit Provider Nurse Practitioner Family | DX: J31.2 Chronic pharyngitis (principal) | CPT/HCPCS: 87070 ==

== ENCOUNTER → 2023-08-22 08:04 | Outpatient (CLI) | payer MEDICARE, SELFPAY ==
[2023-08-22 09:28] LABS: Cholesterol 228 mg/dL (140-199); HDL Cholesterol 72 mg/dL (40-60); LDL Cholesterol Calculated 132 mg/dL (<100); Triglycerides 121 mg/dL (35-150)
[2023-08-23 08:11] LABS: Apolipoprotein B 110 mg/dL (<90)
[2023-08-25 05:02] LABS: Lipoprotein (a) 218.1 nmol/L (<75.0)
== END ==
PROVIDERS: PCP Family Medicine; Referring Provider Family Medicine; Visit Provider Family Medicine
DX: Z00.00 Encounter for general adult medical examination without abnormal findings (principal); E78.5 Hyperlipidemia, unspecified
CPT/HCPCS: 36415; 80061; 82172; 83695

== ENCOUNTER → 2023-10-01 08:47 | Outpatient (CLI) | payer MEDICARE, SELFPAY ==
--- NOTE | 2023-10-01 08:49 | DI.MG.S_ITS ---
BILATERAL DIGITAL DIAGNOSTIC MAMMOGRAM 3D/2D: 10/01/2023 CLINICAL: Right breast Pain. Comparison is made to exam dated: 03/18/2009 mammogram - [facility]. Both breasts are heterogeneously dense, which may obscure small masses (category c / 51-75% glandular tissue). No significant masses, calcifications, or other findings are seen in either breast. IMPRESSION: NEGATIVE There is no mammographic evidence of malignancy. A 1 year screening mammogram is recommended. Exam findings were conveyed to the patient. Patient is advised to monitor for significant change. Clinical follow-up as needed. Based on the Tyrer Cuzick model (a risk assessment model) the patient's lifetime risk is 17.7% and her 10 year risk is 9.1%. According to the ACR, ACS, and NCCN guidelines, an annual breast MRI exam along with mammogram is recommended if the patient's lifetime risk is 20% or greater. This exam was interpreted at Station ID: [id number]. NOTE: For mammograms, a report in lay terms will be sent to the patient. Approximately 15% of breast malignancies will not be visualized mammographically. In the management of a palpable breast mass, a negative mammogram must not discourage biopsy of a clinically suspicious lesion. Electronically Signed By: Taran Loo M.D. [facility]/:10/01/2023 09:37:42 letter sent: Normal Exam ACR BI-RADS Category 1: Negative [id number]
== END ==
PROVIDERS: PCP Family Medicine; Referring Provider Family Medicine; Visit Provider Family Medicine
DX: N64.4 Mastodynia (principal); R92.333 Mammographic heterogeneous density, bilateral breasts
CPT/HCPCS: 77066; G0279

== ENCOUNTER → 2024-09-16 07:03 | Outpatient (CLI) | payer MEDICARE, SELFPAY ==
[2024-09-16 08:07] LABS: Alanine Aminotransferase 30 IU/L (<35); Albumin 4.6 g/dL (3.5-5.0); Albumin Globulin Ratio 1.9 (1.0-2.8); Alkaline Phosphatase 72 U/L (38-126); Aspartate Aminotransferase 32 IU/L (14-36); BUN Creatinine Ratio 15.9 (6-22); Bilirubin Total 0.5 mg/dL (0.2-1.3); Blood Urea Nitrogen 13 mg/dL (7-17); Calcium 9.7 mg/dL (8.4-10.2); Carbon Dioxide 27 mmol/L (22-32); Chloride 103 mmol/L (98-107); Cholesterol 261 mg/dL (140-199); Estimated Glomerular Filt Rate > 60 mL/min (>60); Globulin 2.4 g/dL (1.7-4.1); Glucose 96 mg/dL (70-99); HDL Cholesterol 67 mg/dL (40-60); HEMOLYSIS < 15 (0-50); LDL Cholesterol Calculated 168 mg/dL (<100); Potassium 4.7 mmol/L (3.4-5.1); Sodium 138 mmol/L (137-145); Triglycerides 129 mg/dL (35-150)
[2024-09-17 04:36] LABS: Apolipoprotein B 122 mg/dL (<90)
== END ==
PROVIDERS: PCP Family Medicine; Referring Provider Family Medicine; Visit Provider Family Medicine
DX: E78.5 Hyperlipidemia, unspecified (principal); G89.29 Other chronic pain; M54.2 Cervicalgia; M54.50 Low back pain, unspecified; M25.561 Pain in right knee; Z78.9 Other specified health status
CPT/HCPCS: 36415; 80053; 80061; 82172

== ENCOUNTER → 2025-04-16 15:47 | Outpatient (CLI) | payer MEDICARE, SELFPAY | PROVIDERS: PCP Family Medicine; Referring Provider Family Medicine; Visit Provider Family Medicine | DX: R19.7 Diarrhea, unspecified (principal) | CPT/HCPCS: 87045 ==